=== PATIENT | female | born 1985 | race Caucasian/White ===

== ENCOUNTER 2021-05-30 22:44 | Emergency (ER) | payer OTHER ==
--- OUTSIDE RECORDS SUMMARY | 2021-05-30 22:47 | XMS REPORT | Continuity of Care Document ---
:1985 Author Organization [facility] t Address [address] [place] [address] Care Team Providers Name Role Phone Juan Maldonado MD Attending Clinician Josiah FOUNTAIN Attending Clinician Pob, Lab Main Attending Clinician Unavailable Doctor Unassigned, Name Attending Clinician Unavailable Problems This patient has no known problems. Allergies, Adverse Reactions, Alerts This patient has no known allergies or adverse reactions. Medications This patient has no known medications. Procedures This patient has no known procedures. Encounters Start End Encounter Admission Attending Care Care Encounter Source Date/Time Date/Time Type Type Clinicians Facility Department ID 2021-05-10 2021-05-10 Routine Anyi Maldonado [facility] [id number] 15:33:03 16:58:41 Juan Stock [id number] Visit Kassy [id number] [place] [id number] [address] 2021-05-09 2021-05-09 Case ISRAEL Rahman [id number] 00:00:00 00:00:00 Management Opal Stock [id number] [place] [id number] Professio [id number] [address] 2021-05-09 2021-05-09 Telephone Anyi Maldonado [facility] [id number] 00:00:00 00:00:00 Juan Stock [id number] [place] [id number] [facility] [id number] [facility] [address] [facility] 2021-05-05 2021-05-05 Hospital Anyi Maldonado [facility] [id number] 15:00:00 23:59:00 Encounter Cam Dayami [id number] [place] [id number] [place] [id number] 2021-05-05 2021-05-05 Cds Sales Advisor Noah Molina [facility] [id number] 15:14:32 15:29:32 Visit Lab Main Day[place] [id number] [place] [id number] [facility] [phone] [facility] 353 [facility] 2021-05-01 2021-05-01 Orders Doctor AMMY [id number] 00:00:00 00:00:00 Only Unassigned, LIVE [id number] [place] [facility] [id number] Results This patient has no known results.
[2021-05-30 23:52] LABS: Absolute Lymphocytes (CBC) 1.7 K/uL (0.7-4.9); Basophils % 0.3 % (0-1.3); Hematocrit 32.9 % (36.0-45.0); Lymphocytes % 23.3 % (15.3-44.8); MPV 7.9 fL (7.6-11.3); RBC Red Blood Cell Count 4.47 M/uL (3.86-4.86)
[2021-05-31 00:32] LABS: BUN Blood Urea Nitrogen 9 mg/dL (7-18); Bicarbonate 25 mmol/L (21-32); Glucose Level 215 mg/dL (74-106); HCG, Quantitative 18669 mIU/mL (1-3); Potassium 3.7 mmol/L (3.5-5.1); Sodium Level 136 mmol/L (136-145)
--- NOTE | 2021-05-31 00:39 | EDPHYS ---
Physician Documentation [facility] Name: Vicki Vizcaino Age: 36 yrs Sex: Female : 1985 Arrival Date: 05/30/2021 Time: 22:48 Bed 3 Private MD: ED Physician Francisco J Douglass HPI: 05/30 23:00 This 36 yrs old Female presents to ER via Wheelchair with complaints of 17 mh7 Weeks and Water Broke. 23:00 The patient presents to the emergency department with rupture of membranes, that mh7 occurred just prior to arrival, today. The estimated gestational age is 17 weeks. course: care: private OB physician, the patient's last check was April 2021, Leakage of Fluid: yes, a small amount, clear fluid, Ultrasound: the patient had an ultrasound, on April 2021, which was normal, Risk/complications: type I diabetes. Previous pregnancies: in previous pregnancies patient has had. 23:00 Associated signs and symptoms: Pertinent positives: Lower back pain, Pertinent mh7 negatives: abdominal pain, chest pain, diarrhea, dysuria, fever, frequency, nausea, seizure, shortness of breath, vaginal bleeding, vaginal discharge, vomiting. 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 - Social history:: Smoking status: Patient denies any tobacco usage or history of. ROS: 23:00 Constitutional: Negative for fever, chills, and weight loss, Eyes: Negative for injury, mh7 pain, redness, and discharge, ENT: Negative for injury, pain, and discharge, Neck: Negative for injury, pain, and swelling, Cardiovascular: Negative for chest pain, palpitations, and edema, Respiratory: Negative for shortness of breath, cough, wheezing, and pleuritic chest pain, Abdomen/GI: Negative for abdominal pain, nausea, vomiting, diarrhea, and constipation, Back: Negative for injury and pain, MS/Extremity: Negative for injury and deformity, Skin: Negative for injury, rash, and discoloration, Neuro: Negative for headache, weakness, numbness, tingling, and seizure, Psych: Negative for depression, anxiety, suicide ideation, homicidal ideation, and hallucinations, Allergy/Immunology: Negative for hives, rash, and allergies, Endocrine: Negative for neck swelling, polydipsia, polyuria, polyphagia, and marked weight changes. Exam: 23:00 Constitutional: This is a well developed, well nourished patient who is awake, alert, mh7 and in no acute distress. Head/Face: Normocephalic, atraumatic. Eyes: Pupils equal round and reactive to light, extra-ocular motions intact. Lids and lashes normal. Conjunctiva and sclera are non-icteric and not injected. Cornea within normal limits. Periorbital areas with no swelling, redness, or edema. Neck: Trachea midline, no thyromegaly or masses palpated, and no cervical lymphadenopathy. Supple, full range of motion without nuchal rigidity, or vertebral point tenderness. No Meningismus. Chest/axilla: Normal chest wall appearance and motion. Nontender with no deformity. No lesions are appreciated. Cardiovascular: Regular rate and rhythm with a normal S1 and S2. No gallops, murmurs, or rubs. Normal PMI, no JVD. No pulse deficits. Respiratory: Lungs have equal breath sounds bilaterally, clear to auscultation and percussion. No rales, rhonchi or wheezes noted. No increased work of breathing, no retractions or nasal flaring. Abdomen/GI: Soft, non-tender, with normal bowel sounds. No distension or tympany. No guarding or rebound. No evidence of tenderness throughout. Back: No spinal tenderness. No costovertebral tenderness. Full range of motion. Skin: Warm, dry with normal turgor. Normal color with no rashes, no lesions, and no evidence of cellulitis. MS/ Extremity: Pulses equal, no cyanosis. Neurovascular intact. Full, normal range of motion. Neuro: Awake and alert, GCS 15, oriented to person, place, time, and situation. Cranial nerves II-XII grossly intact. Motor strength 5/5 in all extremities. Sensory grossly intact. Cerebellar exam normal. Normal gait. Psych: Awake, alert, with orientation to person, place and time. Behavior, mood, and affect are within normal limits. 23:00 : Pelvic Exam: The exam is refused by the patient/guardian. The risks and [facility] consequences are understood by the patient, Gravid exam: Fundal height: consistent with gestational age, Bladder: is normal. Vital Signs: 22:59 BP 150 / 81; Pulse 87; Resp 20; Temp 98.5(O); Pulse Ox 100% on R/A; Weight 107.5 kg; em Height 5 ft. 2 in. (157.48 cm); Pain 7/10; 23:31 BP 140 / 71; Pulse 91; Resp 16; Pulse Ox 100% on R/A; ea 22:59 Body Mass Index 43.35 (107.50 kg, 157.48 cm) em MDM: 23:00 Data reviewed: vital signs, nurses notes. [facility] 05/31 04:18 Differential diagnosis: STD, threatened Ab, inevitable Ab, complete Ab, retained Ab, mh7 septic Ab, missed Ab, Premature Rupture of Membranes. 04:21 ED course: Informed by nursing staff the patient left AGAINST MEDICAL ADVICE. She would [facility] not wait to speak with physician.. 04:21 Data reviewed: lab test result(s). [facility] 04:22 Patient medically screened. [facility] 05/30 23:16 Order name: Abo/rh Typing; Complete Time: 00:33 7 05/30 23:16 Order name: Basic Metabolic Panel; Complete Time: 00:33 7 05/30 23:16 Order name: CBC with Diff; Complete Time: 00:05 7 05/30 23:16 Order name: Quantitative Hcg; Complete Time: 00:33 7 05/30 23:16 Order name: IV Saline Lock; Complete Time: 23:43 7 05/30 23:16 Order name: Labs collected and sent; Complete Time: 23:43 7 05/30 23:16 Order name: NPO; Complete Time: 23:43 7 Administered Medications: No medications were administered Disposition Summary: 05/31/21 00:38 Left Against Medical Advice Location: Home ea Condition: Stable ea Discharge Instructions: - Discharge Summary Sheet [facility] - Premature Rupture and Premature Rupture of Membranes [facility] Signatures: Dispatcher [employer] Akhil Murphy RN RN em Antunez, Elena, RN RN ea Holmes, Maurice, MD MD 7
--- NOTE | 2021-05-31 00:39 | ER ---
Nurse's Notes [facility] Name: Vicki Vizcaino Age: 36 yrs Sex: Female : 1985 Arrival Date: 05/30/2021 Time: 22:48 Bed 3 Private MD: Diagnosis: Presentation: 05/30 22:59 Chief complaint: Patient states: was going to get into the shower and felt water break, em reports being 17 weeks , denies blood or abdominal cramping, has had lower back pain that started this afternoon. Coronavirus screen: Client denies travel out of the [place] in the last 14 days. Ebola Screen: Patient negative for fever greater than or equal to 101.5 degrees Fahrenheit, and additional compatible Ebola Virus Disease symptoms Patient denies exposure to infectious person. Patient denies travel to an Ebola-affected area in the 21 days before illness onset. No symptoms or risks identified at this time. Initial Sepsis Screen: Does the patient meet any 2 criteria? No. Patient's initial sepsis screen is negative. Does the patient have a suspected source of infection? No. Patient's initial sepsis screen is negative. Risk Assessment: Do you want to hurt yourself or someone else? Patient reports no desire to harm self or others. Onset of symptoms was May 30, 2021. 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 - Social history:: Smoking status: Patient denies any tobacco usage or history of. Screenin:29 Abuse screen: Denies threats or abuse. Nutritional screening: No deficits noted. ea Tuberculosis screening: No symptoms or risk factors identified. Fall Risk None identified. Assessment: 23:29 General: Appears in no apparent distress. Behavior is calm, cooperative, appropriate ea for age. Pain: Complains of pain in back. Neuro: Level of Consciousness is awake, alert, obeys commands, Oriented to person, place, time. Cardiovascular: Patient's skin is warm and dry. Respiratory: Airway is patent Respiratory effort is even, unlabored, Respiratory pattern is regular, symmetrical. Derm: Skin is pink, warm \T\ dry. 05/31 00:37 Reassessment: Patient and/or family updated on plan of care and expected duration. Pain ea level reassessed. Patient is alert, oriented x 3, equal unlabored respirations, skin warm/dry/pink. Reports she is going [facility] where her OB is at. Vital Signs: 05/30 22:59 BP 150 / 81; Pulse 87; Resp 20; Temp 98.5(O); Pulse Ox 100% on R/A; Weight 107.5 kg; em Height 5 ft. 2 in. (157.48 cm); Pain 7/10; 23:31 BP 140 / 71; Pulse 91; Resp 16; Pulse Ox 100% on R/A; ea 22:59 Body Mass Index 43.35 (107.50 kg, 157.48 cm) em ED Course: 22:48 Patient arrived in ED. bp1 23:02 Triage completed. em 23:02 Arm band placed on. em 23:07 Francisco J Douglass MD is Attending Physician. [facility] 23:29 Lisette Agarwal RN is Primary Nurse. ea 23:29 Patient has correct armband on for positive identification. Bed in low position. Call ea light in reach. Side rails up X2. 23:30 No provider procedures requiring assistance completed. Inserted saline lock: 20 gauge ea in right antecubital area, using aseptic technique. 05/31 00:39 Primary Nurse role handed off by Lisette Agarwal RN ea Administered Medications: No medications were administered Outcome: 00:38 AMA AMA form signed ea 00:38 Condition: stable 00:38 Patient left the ED. ea 00:40 AMA ea 00:40 Patient left the ED. ea Signatures: Akhil Cordova RN MARINE Lisette Agarwal RN RN Pricila Lunsford bp1 Francisco J Douglass MD MD 7
[2021-05-31 00:44] VITALS: TEMP 98.5; O2SAT 100
[2021-05-31 00:46] VITALS: BP 140/71
== END 2021-05-31 00:40 | disposition left against medical advice (07) ==
LOC: ER 22:44
DX: O42.912 Preterm premature rupture of membranes, unspecified as to length of time between rupture and onset of labor, second trimester (principal); Z3A.17 17 weeks gestation of pregnancy
CPT/HCPCS: 36415; 80048; 84702; 85025; 86900; 86901; 99282

== ENCOUNTER 2023-03-29 06:49 | Emergency (ER) | payer OTHER ==
--- OUTSIDE RECORDS SUMMARY | 2023-03-29 06:54 | XMS REPORT | Continuity of Care Document ---
:1985 Author Organization [facility] t Address [address] [facility] [address] [place] [address] Care Team Providers Name Role Phone Pcp, Patient Does Not Have A Primary Care Physician +[id number] Doctor Unassigned, [place] Attending Clinician Unavailable CARITO MARQUEZ Attending Clinician Unavailable Carito Marquez MD Attending Clinician Josefina Edward MD Attending Clinician Opal Rahman PA-C Attending Clinician Pob, [facility] Lab Main Attending Clinician Unavailable JOSEFINA EDWARD Admitting Clinician Unavailable Josefina Edward MD Admitting Clinician Payers Payer Name Policy Type Policy Number Effective Date Expiration Date [facility] [id number] 2021 CHOICE MEDICAID 00:00:00 Problems Condition Condition Condition Status Onset Resolution Last Treating Co mments Source Name Details Category Date Date Treatment Clinician Date Encounter Encounter Disease Active Uni vers for tubal for tubal 8-20 ity of ligation ligation 00:00: [place] counseling counseling 00 Me dical Branch IUFD at IUFD at Disease Active Univers less than less than 8-15 ity of 20 weeks 20 weeks 00:00: [place] of of 00 Medical gestation gestation Bran ch Disease Active Univers premature premature 8-04 ity of rupture of rupture [place] 00:[place] membranes membranes 00 Medi isabelle (PPROM) (PPROM) Branch with with unknown unknown onset of onset of labor labor 16 weeks 16 weeks Disease Active Unive rs gestation gestation 8-04 ity of of of 00:00: [place] 00 [facility] Branch 17 weeks 17 weeks Disease Active Unive rs gestation gestation 8-04 ity of of of 00:00: [place] 00 [facility] Branch 18 weeks 18 weeks Disease Active Unive rs gestation gestation 8-04 ity of of of 00:00: [place] 00 [facility] Branch Disease Active Univers premature premature 8-04 ity of rupture of rupture of 00:00[place] membranes membranes 00 [facility] (PPROM) (PPROM) [place] with onset with onset of labor of labor after 24 after 24 hours of hours of rupture in rupture in second second trimester, trimester, antepartum antepartum Elevated Elevated Disease Active Unive rs BP without BP without 7-14 it [place] of diagnosis diagnosis 00:00[place] of of 00 Medical hypertensi hypertensi Br anch on on Maternal Maternal Disease Active Unive rs pregestati pregestati 04-28 it y of onal onal 00:00: [place] diabetes diabetes 00 Medica l classes B classes B Bran ch through R, through R, antepartum antepartum Obesity, Obesity, Disease Active Unive rs Class III, Class III, 7 it y of BMI BMI 00:00: [place] 40-49.9 40-49.9 00 Medical (morbid (morbid Branch obesity) obesity) AMA AMA Disease Active Univers (advanced (advanced 04-28 ity of maternal maternal 00:00: [place] age) age) 00 Medical multigravi multigravi Br anch da 35+, da 35+, unspecifie unspecifie d d trimester trimester High-risk High-risk Disease Active Uni vers 702 ity of in second in second 00:00[place] trimester trimester 00 [facility] Branch Obesity, Obesity, Disease Active Unive rs Class III, Class III, 7 it y of BMI BMI 00:00: [place] 40-49.9 40-49.9 00 Medical (morbid (morbid Branch obesity) obesity) Allergies, Adverse Reactions, Alerts Allergy Allergy Status Severity Reaction(s) Onset Inactive Treating Comm ents Source Name Type Date Date Clinician NO KNOWN Drug Active Univers ALLERGIE Class ity of S [facility] Social History Social Habit Start Date Stop Date Quantity Comments Source ASSERTION 2021-02-16 University of 00:00:00 [facility] Exposure to Not sure University of SARS-CoV-2 [place] [facility] (event) Branch History SDOH University o f Alcohol Frequency [place] M edical Branch History [facility] o f Alcohol Std [place] [facility] Drinks Branch History [facility] o f Alcohol Binge [facility] al [place] Alcohol intake 2021-06-30 2021-06-30 Ex-drinker [facility] 00:00:00 00:00:00 (finding) [facility] Tobacco use and 2021-04-28 2021-04-28 Smokeless tobacco Un iversity of exposure 00:00:00 00:00:00 non-user [facility] Alcohol Comment 2021-04-28 2021-04-28 socially prior to Un iversity of 00:00:00 00:00:00 [facility] Sex [birth year] Universit y of 00:00:00 00:00:00 [facility] Smoking Status Start Date Stop Date Source Unknown if ever smoked [facility] y [facility] Never smoked tobacco [facility] Medications Ordered Filled Start Stop Current Ordering Indication Dosage Frequency Signature Comments Components Source Medication Medication Date Date Medication? Clinician (SIG) Name Name norethindro Yes [id number] 1{tbl} Take 1 Univers ne-e.estrad 9-03 tablet by ity of ioL-iron 00:00: mouth [place] (BLISOVI FE 00 daily. Medica l 1.03/26, Branch 28,) 1.5 mg-30 mcg (21)/75 mg (7) per tablet norethindro Yes [id number] 1{tbl} Take 1 Univers ne-e.estrad 9-03 tablet by ity of ioL-iron 00:00: mouth [place] (BLISOVI FE 00 daily. Medica l 1.5/30, Branch 28,) 1.5 mg-30 mcg (21)/75 mg (7) per tablet norethindro Yes [id number] 1{tbl} Take 1 Univers ne-e.estrad 9-03 tablet by ity of ioL-iron 00:00: mouth [place] (BLISOVI FE 00 daily. Medica l 1.5/30, Branch 28,) 1.5 mg-30 mcg (21)/75 mg (7) per tablet metFORMIN 2020-0 Yes 1000mg Take 1,000 Univers 1,000 mg 8-27 mg by ity of tablet 00:00: mouth (two) Medical times Branch daily with meals. metFORMIN 2020-0 Yes 1000mg Take 1,000 Univers 1,000 mg 8-27 mg by ity of tablet 00:00: mouth [place] (two) Medical times Branch daily with meals. metFORMIN 0 Yes 1000mg Take 1,000 Univers 1,000 mg 8-27 mg by ity of tablet 00:00: mouth [place] (two) Medical times [place] daily with meals. Nitrofurant 2020- No [id number] 100mg Take 1 Univers oin&Nit. 06-23 capsule by ity of Macrocryst 00:00: 04:59 mouth 2 [place] (MACROBID) 00 :00 (two) Medical 100 mg times Branch capsule daily for 7 days. Nitrofurant 2020- No [id number] 100mg Take 1 Univers oin&Nit. 06-23 capsule by ity of Macrocryst 00:00: 04:59 mouth 2 [place] (MACROBID) 00 :00 (two) Medical 100 mg times Branch capsule daily for 7 days. Nitrofurant 2020- No [id number] 100mg Take 1 Univers oin&Nit. 06-23 capsule by ity of Macrocryst 00:00: 04:59 mouth 2 [place] (MACROBID) 00 :00 (two) Medical 100 mg times Branch capsule daily for 7 days. Nitrofurant 2020- No [id number] 100mg Take 1 Univers oin&Nit. 06-23 capsule by ity of Macrocryst 00:00: 04:59 mouth 2 [place] (MACROBID) 00 :00 (two) Medical 100 mg times Branch capsule daily for 7 days. phenazopyri 2020- No [id number] 200mg Take 1 Univers dine 06-23 tablet by ity of (PYRIDIUM) 00:00: 04:59 mouth 3 [place] 200 mg 00 :00 (three) Medical tablet times Branch daily after meals for 2 days. phenazopyri 202- No [id number] 200mg Take 1 Univers dine 8-27 08-30 tablet by ity of (PYRIDIUM) 00:00: 04:59 mouth 3 [place] 200 mg 00 :00 (three) Medical tablet times Branch daily after meals for 2 days. norethindro 0 Yes [id number] 1{tbl} Take 1 Univers ne-e.estrad 8-20 tablet by ity of ioL-iron 00:00: mouth [place] (BLISOVI FE 00 daily. Medica l 1.5, Branch 28,) 1.5 mg-30 mcg (21)/75 mg (7) per tablet norethindro 0 Yes [id number] 1{tbl} Take 1 Univers ne-e.estrad 8-20 tablet by ity of ioL-iron 00:00: mouth [place] (BLISOVI FE 00 daily. Medica l 1.03/26, Branch 28,) 1.5 mg-30 mcg (21)/75 mg (7) per tablet norethindro 0 Yes [id number] 1{tbl} Take 1 Univers ne-e.estrad 8-20 tablet by ity of ioL-iron 00:00: mouth [place] (BLISOVI FE 00 daily. Medica l 1.30, Branch 28,) 1.5 mg-30 mcg (21)/75 mg (7) per tablet norethindro 2020-0 Yes [id number] 1{tbl} Take 1 Univers ne-e.estrad 8-20 tablet by ity of ioL-iron 00:00: mouth [place] (BLISOVI FE 00 daily. Medica l 1.30, Branch 28,) 1.5 mg-30 mcg (21)/75 mg (7) per tablet norethindro 0 Yes [id number] 1{tbl} Take 1 Univers ne-e.estrad 8-20 tablet by ity of ioL-iron 00:00: mouth [place] (BLISOVI FE 00 daily. Medica l 1.30, Branch 28,) 1.5 mg-30 mcg (21)/75 mg (7) per tablet norethindro 2020- No [id number] 1{tbl} Take 1 Univers ne-e.estrad 06-16 tablet by it y of ioL-iron 00:00: 00:00 mouth [place] (BLISOVI FE 00 :00 daily. Medica l 1.5/30, Branch 28,) 1.5 mg-30 mcg (21)/75 mg (7) per tablet norethindro 2020- No [id number] 1{tbl} Take 1 Univers ne-e.estrad 06-16 tablet by it y of ioL-iron 00:00: 00:00 mouth [place] (BLISOVI FE 00 :00 daily. Medica l 1.5/30, Branch 28,) 1.5 mg-30 mcg (21)/75 mg (7) per tablet Yes 1{tbl} 1 tablet, Un ama vitamin 8-16 Oral, ity of w/FA 14:00: DAILY, [place] (PRENATABS 00 First dose Med ical RX) tablet on Sat Branch 1 tablet 06/12/21 at 0900, Until Discontinu ed, Routine ibuprofen Yes [id number] 600mg Take 1 U nivers 600 mg 8-16 tablet by ity of tablet 00:00: mouth [place] 00 every 6 Medical (six) Branch hours as needed (Pain). Take with food or milk. ibuprofen 2020-0 Yes [id number] 600mg Take 1 U nivers 600 mg 8-16 tablet by ity of tablet 00:00: mouth [place] 00 every 6 Medical (six) Branch hours as needed (Pain). Take with food or milk. ibuprofen 2020-0 Yes [id number] 600mg Take 1 U nivers 600 mg 8-16 tablet by ity of tablet 00:00: mouth [place] 00 every 6 Medical (six) Branch hours as needed (Pain). Take with food or milk. ibuprofen 2020-0 Yes [id number] 600mg Take 1 U nivers 600 mg 8-16 tablet by ity of tablet 00:00: mouth [place] 00 every 6 Medical (six) Branch hours as needed (Pain). Take with food or milk. ibuprofen 2020-0 Yes [id number] 600mg Take 1 U nivers 600 mg 8-16 tablet by ity of tablet 00:00: mouth [place] 00 every 6 Medical (six) Branch hours as needed (Pain). Take with food or milk. ibuprofen Yes [id number] 600mg Take 1 U nivers 600 mg 8-16 tablet by ity of tablet 00:00: mouth [place] 00 every 6 Medical (six) Branch hours as needed (Pain). Take with food or milk. ibuprofen Yes [id number] 600mg Take 1 U nivers 600 mg 8-16 tablet by ity of tablet 00:00: mouth [place] 00 every 6 Medical (six) Branch hours as needed (Pain). Take with food or milk. ibuprofen Yes [id number] 600mg Take 1 U nivers 600 mg 8-16 tablet by ity of tablet 00:00: mouth [place] 00 every 6 Medical (six) Branch hours as needed (Pain). Take with food or milk. ibuprofen Yes [id number] 600mg Take 1 U nivers 600 mg 8-16 tablet by ity of tablet 00:00: mouth [place] 00 every 6 Medical (six) Branch hours as needed (Pain). Take with food or milk. LR 1000 mL Yes 125mL/h 125 mL/hr, Univers + oxytocin 8-15 IV ity of 20 units IV 16:15: Infusion, [place] Solution 00 CONTINUOUS Medic al , Starting [facility] 06/11/21 at 1115
X 1 liter only.
rho(D) Yes 300ug 300 mcg, Univer s immune 8-15 Intramuscu ity of globulin 15:11: lar, ONCE, [place] (RHOGAM) 12 For 1 Medical syringe 300 dose, Branch mcg Conditiona l, Routine ibuprofen Yes 600mg 600 mg, Univ ers (IBU) 8-15 Oral, ity of tablet 600 15:07: Q6HPRN, [place] mg 39 Starting [facility] 06/11/21 at 1007, Until Discontinu ed, Routine, Pain (scale 4-6) acetaminoph Yes 650mg 650 mg, Un ama en 8-15 Oral, ity of (TYLENOL) 15:07: Q6HPRN, [place] tablet 650 38 Starting Medic al mg [facility] 06/11/21 at 1007, Until Discontinu ed, Routine, Pain (scale 1-3) diphenhydrA 2020-0 Yes 25mg 25 mg, Univ ers MINE 8-15 Oral, ity of (BENADRYL) 15:07: Q6HPRN, [place] tablet 25 38 Starting Medica l mg [facility] 06/11/21 at 1007, Until Discontinu ed, Routine, Sleep, Itching diphenhydrA 2020-0 Yes 25mg 25 mg, IV U nivers MINE 8-15 Piggyback, ity of (BENADRYL) 15:07: Administer [place] 25 mg in 38 over 30 Medical NaCl 0.9% Minutes, Branch (NS) Q6HPRN, piggyback Starting 06/11/21 at 1007, Until Discontinu ed, Routine, Itching ondansetron 2020-0 Yes 4mg 4 mg, Slow Univers (ZOFRAN 8-15 IV Push, ity of (PF)) 15:07: Q8HPRN, [place] injection 4 38 Starting Medi isabelle mg [place] 06/11/21 at 1007, Until Discontinu ed, Routine, Nausea and Vomiting (N/V) simethicone 2020-0 Yes 160mg 160 mg, Un ama (GAS RELIEF 8-15 Oral, ity of (SIMETHICON 15:07: PC+HSPRN, [place] E)) 38 Starting Medical chewable [place] [facility] tablet 160 06/11/21 at mg 1007, Until Discontinu ed, Routine, Gas docusate 2020-0 Yes 240mg 240 mg, Unive rs calcium 8-15 Oral, ity of (SURFAK) 15:07: QDAILYPRN, [place] capsule 240 38 Starting Medi isabelle mg [place] 06/11/21 at 1007, Until Discontinu ed, Routine, Constipati on magnesium 2020-0 Yes 30mL 30 mL, Univer s hydroxide 8-15 Oral, ity of (MILK OF 15:07: QDAILYPRN, [place] MAGNESIA) 38 Starting Medica l 400 mg/5 mL [place] suspension 06/11/21 at 30 mL 1007, Until Discontinu ed, Routine, Constipati on benzocaine- 2020-0 Yes Topical, Un ama menthol 8-15 PRN, ity of (DERMOPLAST 15:07: Starting [place] ) 20-0.5 % 38 [facility] topical 06/11/21 at Branch spray 1007, Until Discontinu ed, Routine, Perineum discomfort ibuprofen 2020- No 600mg 600 mg, Uni vers (IBU) 06-11 Oral, ity of tablet 600 15:00: 17:59 Q6HPRN, [place] mg 00 :54 Starting Medical [facility] 06/11/21 at 1000, Until [place] 06/11/21 at 1259, Routine, Pain (scale 1-3), Pain (scale 4-6) FENTanyl PF 2020- No 50ug 50 mcg, Un ama (SUBLIMAZE 06-11 Slow IV ity o f (PF)) 13:15: 12:49 Push, [place] injection 00 :00 ONCE, 1 Medical 50 mcg dose, [facility] 06/11/21 at 0815, Routine FENTanyl PF 2020- No 50ug 50 mcg, Un ama (SUBLIMAZE 06-11 Slow IV ity o f (PF)) 13:00: 13:01 Push, [place] injection 00 :00 ONCE, 1 Medical 50 mcg dose, [facility] 06/11/21 at 0800, Routine LR 1000 mL Yes 2mU/min at 6-120 Univers + oxytocin 8-15 mL/hr, IV ity of 20 units IV 12:55: Infusion, [place] Solution 00 TITRATE, [facility] Starting [facility] 06/11/21 at 0755, Until Discontinu ed, BONY methylergon 2020- No .2mg 0.2 mg, Un ama ovine 06-11 Intramuscu ity of (METHERGINE 12:45: 12:44 lar, ONCE, [place] ) injection 00 :00 1 dose, Medic al 0.2 mg [facility] 06/11/21 at 0745, Routine ALPRAZolam 2020- No 1mg 1 mg, Unive rs (XANAX) 05-31 08-04 Oral, ity of tablet 1 mg 10:11: 10:27 ONCE, 1 [place] 00 :00 dose, [facility] 05/31/21 at Branch 0515, Routine FREESTYLE Yes CHECK Univers LANCETS 28 7-27 GLUCOSE ity of gauge Misc 00:00: LEVELS 4 [place] 00 TIMES A Medical DAY Branch FREESTYLE Yes CHECK Univers LANCETS 28 7-27 GLUCOSE ity of gauge Misc 00:00: LEVELS 4 [place] 00 TIMES A Medical DAY Branch FREESTYLE Yes CHECK Univers LANCETS 28 7-27 GLUCOSE ity of gauge Misc 00:00: LEVELS 4 [place] 00 TIMES A Medical DAY Branch FREESTYLE Yes CHECK Univers LANCETS 28 7-27 GLUCOSE ity of gauge Misc 00:00: LEVELS 4 [place] 00 TIMES A Medical DAY Branch FREESTYLE Yes CHECK Univers LANCETS 28 7-27 GLUCOSE ity of gauge Misc 00:00: LEVELS 4 [place] 00 TIMES A Medical DAY Branch ferrous Yes [id number] 325mg Take 1 Un ama sulfate 7-14 tablet by ity of (IRON, 00:00: mouth 2 [place] FERROUS 00 (two) Medical SULFATE,) times Branch 325 mg (65 daily. mg iron) tablet insulin NPH Yes Inject Univ ers (HUMULIN N 7-14 under the ity of NPH U-100 00:00: skin: 33 [place] INSULIN) 00 units with Medic al 100 unit/mL morning Branc h injection meal and 12 units with evening meal. insulin Yes Inject Univers regular 7-14 under the ity of human 100 00:00: skin: 17 [place] unit/mL 00 units with Medica l injection morning Branch meal and 12 units with evening meal. Insulin Yes Use as Univers Syringe-Nee 7-14 directed ity of dle U-100 00:00: [place] 0.5 mL 31 x 00 Medical 3/8" Syrg Branch ferrous Yes [id number] 325mg Take 1 Un ama sulfate 7-14 tablet by ity of (IRON, 00:00: mouth 2 [place] FERROUS 00 (two) Medical SULFATE,) times Branch 325 mg (65 daily. mg iron) tablet insulin NPH Yes Inject Univ ers (HUMULIN N 7-14 under the ity of NPH U-100 00:00: skin: 33 [place] INSULIN) 00 units with Medic al 100 unit/mL morning Branc h injection meal and 12 units with evening meal. insulin Yes Inject Univers regular 7-14 under the ity of human 100 00:00: skin: 17 [place] unit/mL 00 units with Medica l injection morning Branch meal and 12 units with evening meal. Insulin Yes Use as Univers Syringe-Nee 7-14 directed ity of dle U-100 00:00: [place] 0.5 mL 31 x 00 Medical 3/8" Syrg Branch ferrous Yes [id number] 325mg Take 1 Un ama sulfate 7-14 tablet by ity of (IRON, 00:00: mouth 2 [place] FERROUS 00 (two) Medical SULFATE,) times Branch 325 mg (65 daily. mg iron) tablet insulin NPH Yes Inject Univ ers (HUMULIN N 7-14 under the ity of NPH U-100 00:00: skin: 33 [place] INSULIN) 00 units with Medic al 100 unit/mL morning Branc h injection meal and 12 units with evening meal. insulin Yes Inject Univers regular 7-14 under the ity of human 100 00:00: skin: 17 [place] unit/mL 00 units with Medica l injection morning Branch meal and 12 units with evening meal. Insulin Yes Use as Univers Syringe-Nee 7-14 directed ity of dle U-100 00:00: [place] 0.5 mL 31 x 00 Medical 3/8" Syrg Branch ferrous Yes [id number] 325mg Take 1 Un ama sulfate 7-14 tablet by ity of (IRON, 00:00: mouth 2 [place] FERROUS 00 (two) Medical SULFATE,) times Branch 325 mg (65 daily. mg iron) tablet BD INSULIN Yes USE Unive rs SYRINGE 7-14 DIRECTED ity of ULTRA-FINE 00:00: (4 TIMES [place] 1 mL 31 00 DAILY) Medical gauge x Branch 5/16 Syrg insulin NPH Yes Inject Univ ers (HUMULIN N 7-14 under the ity of NPH U-100 00:00: skin: 33 [place] INSULIN) 00 units with Medic al 100 unit/mL morning Branc h injection meal and 12 units with evening meal. insulin Yes Inject Univers regular 7-14 under the ity of human 100 00:00: skin: 17 [place] unit/mL 00 units with Medica l injection morning Branch meal and 12 units with evening meal. Insulin Yes Use as Univers Syringe-Nee 7-14 directed ity of dle U-100 00:00: [place] 0.5 mL 31 x 00 Medical 3/8" Syrg Branch ferrous Yes [id number] 325mg Take 1 Un ama sulfate 7-14 tablet by ity of (IRON, 00:00: mouth 2 [place] FERROUS 00 (two) Medical SULFATE,) times Branch 325 mg (65 daily. mg iron) tablet BD INSULIN Yes USE Unive rs SYRINGE 7-14 DIRECTED ity of ULTRA-FINE 00:00: (4 TIMES [place] 1 mL 31 DAILY) Medical gauge x Branch 5/16 Syrg insulin NPH Yes Inject Univ ers (HUMULIN N 7-14 under the ity of NPH U-100 00:00: skin: [place] INSULIN) 00 units with Medic al 100 unit/mL morning Branc h injection meal and 12 units with evening meal. insulin Yes Inject Univers regular 7-14 under the ity of human 100 00:00: skin: 17 [place] unit/mL 00 units with Medica l injection morning Branch meal and 12 units with evening meal. Insulin Yes Use as Univers Syringe-Nee 7-14 directed ity of dle U-100 00:00: [place] 0.5 mL 31 x 00 Medical 3/8" Syrg Branch ferrous Yes [id number] 325mg Take 1 Un ama sulfate 7-14 tablet by ity of (IRON, 00:00: mouth 2 [place] FERROUS 00 (two) Medical SULFATE,) times Branch 325 mg (65 daily. mg iron) tablet BD INSULIN Yes USE Unive rs SYRINGE 7-14 DIRECTED ity of ULTRA-FINE 00:00: (4 TIMES [place] 1 mL 31 DAILY) Medical gauge x Branch 5/16 Syrg insulin NPH Yes Inject Univ ers (HUMULIN N 7-14 under the ity of NPH U-100 00:00: skin: [place] INSULIN) 00 units with Medic al 100 unit/mL morning Branc h injection meal and 12 units with evening meal. insulin Yes Inject Univers regular 7-14 under the ity of human 100 00:00: skin: 17 [place] unit/mL 00 units with Medica l injection morning Branch meal and 12 units with evening meal. Insulin Yes Use as Univers Syringe-Nee 7-14 directed ity of dle U-100 00:00: [place] 0.5 mL 31 x 00 Medical 3/8" Syrg Branch ferrous Yes [id number] 325mg Take 1 Un ama sulfate 7-14 tablet by ity of (IRON, 00:00: mouth 2 [place] FERROUS 00 (two) Medical SULFATE,) times Branch 325 mg (65 daily. mg iron) tablet BD INSULIN Yes USE Unive rs SYRINGE 7-14 DIRECTED ity of ULTRA-FINE 00:00: (4 TIMES [place] 1 mL DAILY) Medical gauge x Branch 5/16 Syrg insulin NPH Yes Inject Univ ers (HUMULIN N 7-14 under the ity of NPH U-100 00:00: skin: 33 [place] INSULIN) 00 units with Medic al 100 unit/mL morning Branc h injection meal and 12 units with evening meal. insulin Yes Inject Univers regular 7-14 under the ity of human 100 00:00: skin: 17 [place] unit/mL 00 units with Medica l injection morning Branch meal and 12 units with evening meal. Insulin Yes Use as Univers Syringe-Nee 7-14 directed ity of dle U-100 00:00: [place] 0.5 mL 31 x 00 Medical 3/8" Syrg Branch ferrous Yes [id number] 325mg Take 1 Un ama sulfate 7-14 tablet by ity of (IRON, 00:00: mouth 2 [place] FERROUS 00 (two) Medical SULFATE,) times Branch 325 mg (65 daily. mg iron) tablet BD INSULIN Yes USE Unive rs SYRINGE 7-14 DIRECTED ity of ULTRA-FINE 00:00: (4 TIMES [place] 1 mL DAILY) Medical gauge x Branch 5/16 Syrg ferrous Yes [id number] 325mg Take 1 Un ama sulfate 7-14 tablet by ity of (IRON, 00:00: mouth 2 [place] FERROUS 00 (two) Medical SULFATE,) times Branch 325 mg (65 daily. mg iron) tablet ferrous Yes [id number] 325mg Take 1 Un ama sulfate 7-14 tablet by ity of (IRON, 00:00: mouth 2 [place] FERROUS 00 (two) Medical SULFATE,) times Branch 325 mg (65 daily. mg iron) tablet ferrous Yes [id number] 325mg Take 1 Un ama sulfate 7-14 tablet by ity of (IRON, 00:00: mouth 2 [place] FERROUS 00 (two) Medical SULFATE,) times Branch 325 mg (65 daily. mg iron) tablet ferrous Yes [id number] 325mg Take 1 Un ama sulfate 7-14 tablet by ity of (IRON, 00:00: mouth 2 [place] FERROUS 00 (two) Medical SULFATE,) times Branch 325 mg (65 daily. mg iron) tablet ferrous Yes [id number] 325mg Take 1 Un ama sulfate 7-14 tablet by ity of (IRON, 00:00: mouth 2 [place] FERROUS 00 (two) Medical SULFATE,) times Branch 325 mg (65 daily. mg iron) tablet ferrous Yes [id number] 325mg Take 1 Un ama sulfate 7-14 tablet by ity of (IRON, 00:00: mouth 2 [place] FERROUS 00 (two) Medical SULFATE,) times Branch 325 mg (65 daily. mg iron) tablet ferrous Yes [id number] 325mg Take 1 Un ama sulfate 7-14 tablet by ity of (IRON, 00:00: mouth 2 [place] FERROUS 00 (two) Medical SULFATE,) times Branch 325 mg (65 daily. mg iron) tablet ferrous Yes [id number] 325mg Take 1 Un ama sulfate 7-14 tablet by ity of (IRON, 00:00: mouth 2 [place] FERROUS 00 (two) Medical SULFATE,) times Branch 325 mg (65 daily. mg iron) tablet insulin NPH 2020- No Inject Uni vers (HUMULIN N 05-10 under the ity of NPH U-100 00:00: 00:00 skin: 33 [place] INSULIN) 00 :00 units with Medic al 100 unit/mL morning Branc h injection meal and 12 units with evening meal. insulin 2020- No Inject Univers regular 05-10 under the ity of human 100 00:00: 00:00 skin: 17 [place] unit/mL 00 :00 units with Medica l injection morning Branch meal and 12 units with evening meal. Insulin 2020- No Use as Univers Syringe-Nee 05-10 directed ity of dle U-100 00:00: 00:00 [place] 0.5 mL 31 x 00 :00 Medical 3/8" Syrg Branch BD INSULIN 2020- No USE Univ ers SYRINGE 05-10 DIRECTED ity of ULTRA-FINE 00:00: 00:00 (4 TIMES [place] 1 mL 31 00 :00 DAILY) Medical gauge x Branch 16 Syrg metroNIDAZO Yes [id number] 500mg Take 1 Univers LE 500 mg 7-13 tablet by ity o f tablet 00:00: mouth [place] 00 every 12 Medical (twelve) Branch hours. metroNIDAZO Yes [id number] 500mg Take 1 Univers LE 500 mg 7-13 tablet by ity o f tablet 00:00: mouth [place] 00 every 12 Medical (twelve) Branch hours. metroNIDAZO Yes [id number] 500mg Take 1 Univers LE 500 mg 7-13 tablet by ity o f tablet 00:00: mouth [place] 00 every 12 Medical (twelve) Branch hours. Yes [id number] Take by Un ama vit 7-02 mouth. ity of calc,iron,f 20:04: [place] [id number] Medical ( Branch VITAMIN ORAL) Yes [id number] Take by Un ama vit 7-02 mouth. ity of calc,iron,f 20:04: [place] [id number] Medical ( Branch VITAMIN ORAL) Yes [id number] Take by Un ama vit 7-02 mouth. ity of calc,iron,f 20:04: [place] [id number] Medical ( Branch VITAMIN ORAL) Yes [id number] Take by Un ama vit 7-02 mouth. ity of calc,iron,f 20:04: [place] [id number] Medical ( Branch VITAMIN ORAL) Yes [id number] Take by Un ama vit 7-02 mouth. ity of calc,iron,f 20:04: [place] [id number] Medical ( Branch VITAMIN ORAL) Yes [id number] Take by Un ama vit 7-02 mouth. ity of calc,iron,f 20:04: [facility] 04 Medical ( Branch VITAMIN ORAL) Yes [id number] Take by Un ama vit 04-28 mouth. ity of calc,iron,f 20:04[facility]AL) Yes [id number] Take by Un ama vit 04-28 mouth. ity of calc,iron,f 20:04: [place] [id number] Medical ( Branch VITAMIN ORAL) Yes [id number] Take by Un ama vit 04-28 mouth. ity of calc,iron,f 20:04: [place] [id number] Medical ( Branch VITAMIN ORAL) Blood-Gluco Yes Use as Univers se Meter 04-28 directed ity of (FREESTYLE 00:00: [place] LITE METER) 00 Medical Kit Branch blood sugar Yes Pt to Univers diagnostic 04-28 check [place]y of (FREEST[place] 00:[place] levels 4 x Medical STRIPS) per day Branch strip Lancets Yes Pt will Un ama Misc 04-28 check ity of 00:00: glucose [place] 00 levels 4 x Medical per day Branch PNV 0 Yes Take 1 Univers 102-iron-fo 04-28 TAB-CAP/M2 it y of late-dha 00:00: by mouth [place] (VITAFOL FE 00 daily. Medica l PLUS) 90 mg Branch iron- 1 mg-200 mg Cap Blood-Gluco Yes Use as Univers se Meter 04-28 directed ity of (FREESTYLE 00:00: [place] LITE METER) 00 Medical Kit Branch blood sugar Yes Pt to Univers diagnostic 04-28 check [place]y of (FREESTYLE 00:00[place] L[place] 00 levels 4 x Medical STRIPS) per day Branch strip Lancets Yes Pt will Un ama Misc 04-28 check ity of 00:00: glucose [place] 00 levels 4 x Medical per day Branch PNV 0 Yes [id number] Take 1 Univers 102-iron-fo -02 TAB-CAP/M2 it y of late-dha 00:00: by mouth [place] (VITAFOL FE 00 daily. Medica l PLUS) 90 mg Branch iron- 1 mg-200 mg Cap Blood-Gluco Yes [id number] Use as Univers se Meter 04-28 directed ity of (FREESTYLE 00:00: [place] LITE METER) 00 Medical Kit Branch blood sugar Yes Pt to [facility] diagnostic 04-28 check ity of (FREESTYLE 00:00: [place] L[place] 00 levels 4 x Medical STRIPS) per day Branch strip Lancets Yes Pt will Un ama Misc 04-28 check ity of 00:00: glucose [place] 00 levels 4 x Medical per day Branch PNV Yes [id number] Take 1 Univers 102-iron-fo 04-28 TAB-CAP/M2 it y of late-dha 00:00: by mouth [place] (VITAFOL FE 00 daily. Medica l PLUS) 90 mg Branch iron- 1 mg-200 mg Cap Blood-Gluco Yes [id number] Use as Univers se Meter 04-28 directed ity of (FREESTYLE 00:00: [place] LITE METER) 00 Medical Kit Branch blood sugar Yes Pt to [facility] diagnostic 04-28 check ity of (FREESTYLE 00:00: [place] L[place] 00 levels 4 x Medical STRIPS) per day Branch strip Lancets Yes Pt will Un ama Mis 04-28 check ity of 00:00: glucose [place] 00 levels 4 x Medical per day Branch PNV Yes [id number] Take 1 Univers 102-iron-fo 04-28 TAB-CAP/M2 it y of late-dha 00:00: by mouth [place] (VITAFOL FE 00 daily. Medica l PLUS) 90 mg Branch iron- 1 mg-200 mg Cap Blood-Gluco Yes [id number] Use as Univers se Meter 04-28 directed ity of (FREESTYLE 00:00: [place] LITE METER) 00 Medical Kit Branch blood sugar Yes Pt to [facility] diagnostic 04-28 check ity of (FREESTYLE 00:00: [place] L[place] 00 levels 4 x Medical STRIPS) per day Branch strip Lancets Yes Pt will Un ama Misc 04-28 check ity of 00:00: glucose [place] 00 levels 4 x Medical per day Branch PNV 0 Yes [id number] Take 1 Univers 102-iron-fo 04-28 TAB-CAP/M2 it y of late-dha 00:00: by mouth [place] (VITAFOL FE 00 daily. Medica l PLUS) 90 mg Branch iron- 1 mg-200 mg Cap Blood-Gluco Yes [id number] Use as Univers se Meter 04-28 directed ity of (FREESTYLE 00:00: [place] LITE METER) 00 Medical Kit Branch blood sugar Yes Pt to Univers diagnostic 04-28 check ity of (FREESTYLE 00:00: [place] LITE 00 levels 4 x Medical STRIPS) per day Branch strip Lancets Yes Pt will Un ama [facility] 04-28 check ity of 00:00: glucose [place] 00 levels 4 x Medical per day Branch PNV 0 Yes [id number] Take 1 Univers 102-iron-fo 04-28 TAB-CAP/M2 it y of late-dha 00:00: by mouth [place] (VITAFOL FE 00 daily. Medica l PLUS) 90 mg Branch iron- 1 mg-200 mg Cap Blood-Gluco Yes [id number] Use as Univers se Meter 04-28 directed ity of (FREESTYLE 00:00: [place] LITE METER) 00 Medical Kit Branch blood sugar Yes Pt to Univers diagnostic 04-28 check ity of (FREESTYLE 00:00: [place] L[place] 00 levels 4 x Medical STRIPS) per day Branch strip Lancets Yes Pt will Un ama Mis 04-28 check ity of 00:00: glucose [place] 00 levels 4 x Medical per day Branch PNV 0 Yes [id number] Take 1 Univers 102-iron-fo 04-28 TAB-CAP/M2 it y of late-dha 00:00: by mouth [place] (VITAFOL FE 00 daily. Medica l PLUS) 90 mg Branch iron- 1 mg-200 mg Cap Blood-Gluco Yes [id number] Use as Univers se Meter 04-28 directed ity of (FREESTYLE 00:00: [place] LITE METER) 00 Medical Kit Branch blood sugar Yes [id number] Pt to [facility] diagnostic 04-28 check ity of (FREESTYLE 00:00: [place] L[place] 00 levels 4 x Medical STRIPS) per day Branch strip Lancets Yes Pt will Un ama Misc 04-28 check ity of 00:00: glucose [place] 00 levels 4 x Medical per day Branch PNV Yes [id number] Take 1 Univers 102-iron-fo 04-28 TAB-CAP/M2 it y of late-dha 00:00: by mouth [place] (VITAFOL FE 00 daily. Medica l PLUS) 90 mg Branch iron- 1 mg-200 mg Cap Blood-Gluco Yes [id number] Use as Univers se Meter 04-28 directed ity of (FREESTYLE 00:00: [place] LITE METER) 00 Medical Kit Branch blood sugar Yes [id number] Pt to [facility] diagnostic 04-28 check ity of (FREESTYLE 00:00: [place] LITE 00 levels 4 x Medical STRIPS) per day Branch strip Lancets Yes [id number] Pt will Un ama Mis 04-28 check ity of 00:00: glucose [place] 00 levels 4 x Medical per day Branch PNV 0 Yes [id number] Take 1 Univers 102-iron-fo 04-28 TAB-CAP/M2 it y of late-dha 00:00: by mouth [place] (VITAFOL FE 00 daily. Medica l PLUS) 90 mg Branch iron- 1 mg-200 mg Cap Blood-Gluco Yes [id number] Use as Univers se Meter 04-28 directed ity of (FREESTYLE 00:00: [place] LITE METER) 00 Medical Kit Branch blood sugar Yes [id number] Pt to [facility] diagnostic 04-28 check ity of (FREESTYLE 00:00: [place] LITE 00 levels 4 x Medical STRIPS) per day Branch strip Lancets Yes [id number] Pt will Un ama Misc 04-28 check ity of 00:00: glucose [place] 00 levels 4 x Medical per day Branch PNV 0 Yes [id number] Take 1 Univers 102-iron-fo 04-28 TAB-CAP/M2 it y of late-dha 00:00: by mouth [place] (VITAFOL FE 00 daily. Medica l PLUS) 90 mg Branch iron- 1 mg-200 mg Cap Blood-Gluco Yes [id number] Use as Univers se Meter 04-28 directed ity of (FREESTYLE 00:00: [place] LITE METER) 00 Medical Kit Branch blood sugar Yes Pt to Univers diagnostic 04-28 check ity of (FREESTYLE 00:00: [place] LITE 00 levels 4 x Medical STRIPS) per day Branch strip Lancets Yes Pt will Un ama Misc 04-28 check ity of 00:00: glucose [place] 00 levels 4 x Medical per day Branch PNV 0 Yes [id number] Take 1 Univers 102-iron-fo 04-28 TAB-CAP/M2 it y of 00:00: by mouth [place] (VITAFOL FE 00 daily. Medica l PLUS) 90 mg Branch iron- 1 mg-200 mg Cap Blood-Gluco Yes [id number] Use as Univers se Meter 04-28 directed ity of (FREESTYLE 00:00: [place] LITE METER) 00 Medical Kit Branch blood sugar Yes Pt to [facility] diagnostic 04-28 check ity of (FREESTYLE 00:00: [place] LITE 00 levels 4 x Medical STRIPS) per day Branch strip Lancets Yes Pt will Un ama Misc 04-28 check ity of 00:00: glucose [place] 00 levels 4 x Medical per day Branch PNV 0 Yes [id number] Take 1 Univers 102-iron-fo 04-28 TAB-CAP/M2 it y of 00:00: by mouth [place] (VITAFOL FE 00 daily. Medica l PLUS) 90 mg Branch iron- 1 mg-200 mg Cap Blood-Gluco Yes [id number] Use as Univers se Meter 04-28 directed ity of (FREESTYLE 00:00: [place] LITE METER) 00 Medical Kit Branch blood sugar Yes Pt to Univers diagnostic 04-28 check ity of (FREESTYLE 00:00: [place] LITE 00 levels 4 x Medical STRIPS) per day Branch strip Lancets 2021-0 Yes Pt will Un ama Misc 04-28 check ity of 00:00: glucose [place] 00 levels 4 x Medical per day Branch PNV 0 Yes [id number] Take 1 Univers 102-iron-fo 04-28 TAB-CAP/M2 it y of late-dha 00:00: by mouth [place] (VITAFOL FE 00 daily. Medica l PLUS) 90 mg Branch iron- 1 mg-200 mg Cap Blood-Gluco 0 Yes [id number] Use as Univers se Meter 04-28 directed ity of (FREESTYLE 00:00: [place] LITE METER) 00 Medical Kit Branch blood sugar Yes [id number] Pt to Univers diagnostic 04-28 check ity of (FREESTYLE 00:00: [place] L[place] 00 levels 4 x Medical STRIPS) per day Branch strip Lancets Yes [id number] Pt will Un ama Misc 04-28 check ity of 00:00: glucose [place] 00 levels 4 x Medical per day Branch PNV 0 Yes [id number] Take 1 Univers 102-iron-fo 04-28 TAB-CAP/M2 it y of late-dha 00:00: by mouth [place] (VITAFOL FE 00 daily. Medica l PLUS) 90 mg Branch iron- 1 mg-200 mg Cap Blood-Gluco 0 Yes [id number] Use as Univers se Meter 04-28 directed ity of (FREESTYLE 00:00: [place] LITE METER) 00 Medical Kit Branch blood sugar 0 Yes [id number] Pt to Univers diagnostic 04-28 check ity of (FREESTYLE 00:00: [place] LITE 00 levels 4 x Medical STRIPS) per day Branch strip Lancets 0 Yes [id number] Pt will Un ama Misc 04-28 check ity of 00:00: glucose [place] 00 levels 4 x Medical per day Branch PNV 0 Yes [id number] Take 1 Univers 102-iron-fo 04-28 TAB-CAP/M2 it y of late-dha 00:00: by mouth [place] (VITAFOL FE 00 daily. Medica l PLUS) 90 mg Branch iron- 1 mg-200 mg Cap Blood-Gluco 2020-0 2020- No [id number] Use as Univers se Meter 04-28 directed ity of (FREESTYLE 00:00: 00:00 [place] LITE METER) 00 :00 Medical Kit Branch blood sugar 2020- No [id number] Pt to Univers diagnostic 04-28 check ity of (FREESTYLE 00:00: 00:00 glucose [place] LITE 00 :00 levels 4 x Medical STRIPS) per day Branch strip Lancets 2020- No [id number] Pt will U nivers Misc 04-28 check ity of 00:00: 00:00 glucose [place] 00 :00 levels 4 x Medical per day Branch PNV 2020- No [id number] Take 1 Univer s 102-iron-fo 04-28 TAB-CAP/M2 i ty of late-dha 00:00: 00:[place] (VITAFOL FE 00 :00 daily. Medica l PLUS) 90 mg Branch iron- 1 mg-200 mg Cap metFORMIN Yes 1000mg Take 1,000 Univers 1,000 mg 6-23 mg by ity of tablet 00:00: mouth [address] [place] [address] (two) Medical times Branch daily with meals. metFORMIN 2020-0 Yes 1000mg Take 1,000 Univers 1,000 mg 6-23 mg by ity of tablet 00:00: mouth [address] [place] [address] (two) Medical times Branch daily with meals. metFORMIN 2020-0 Yes 1000mg Take 1,000 Univers 1,000 mg 6-23 mg by ity of tablet 00:00: mouth [address] [place] [address] (two) Medical times Branch daily with meals. metFORMIN 2020-0 Yes 1000mg Take 1,000 Univers 1,000 mg 6-23 mg by ity of tablet 00:00: mouth [address] [place] [address] (two) Medical times Branch daily with meals. metFORMIN 2020-0 Yes 1000mg Take 1,000 Univers 1,000 mg 6-23 mg by ity of tablet 00:00: mouth [address] [place] [address] (two) Medical times Branch daily with meals. metFORMIN 2020-0 Yes 1000mg Take 1,000 Univers 1,000 mg 6-23 mg by ity of tablet 00:00: mouth [address] [place] [address] (two) Medical times Branch daily with meals. metFORMIN 2020-0 Yes 1000mg Take 1,000 Univers 1,000 mg 6-23 mg by ity of tablet 00:00: mouth 2 (two) Medical times Branch daily with meals. metFORMIN 2020-0 Yes 1000mg Take 1,000 Univers 1,000 mg 6-23 mg by ity of tablet 00:00: mouth 2 (two) Medical times Branch daily with meals. metFORMIN 2020-0 Yes 1000mg Take 1,000 Univers 1,000 mg 6-23 mg by ity of tablet 00:00: mouth 2 (two) Medical times [place] daily with meals. Vital Signs Vital Name Observation Time Observation Value Comments Source Systolic blood 2021-06-30 19:48:00 125 mm[Hg] [facility] Diastolic blood 2021-06-30 19:48:00 80 mm[Hg] [facility] Heart rate 2021-06-30 19:48:00 80 /min Universi ty [facility] Body temperature 2021-06-30 19:48:00 37 Patricia [facility] 2021-06-30 19:48:00 20 /min [facility] ersity [facility] Body height 2021-06-30 19:48:00 157.5 cm Universi ty [facility] Body weight 2021-06-30 19:48:00 106.624 kg Universi ty [facility] BMI 2021-06-30 19:48:00 42.99 kg/m2 Universi ty [facility] Systolic blood 2021-06-23 15:41:00 125 mm[Hg] [facility] Diastolic blood 2021-06-23 15:41:00 81 mm[Hg] [facility] Heart rate 2021-06-23 15:41:00 65 /min Universi ty [facility] Body temperature 2021-06-23 15:41:00 36.78 Patricia [facility] 2021-06-23 15:41:00 20 /min [facility] Body height 2021-06-23 15:41:00 157.5 cm Universi ty [facility] Body weight 2021-06-23 15:41:00 106.255 kg Universi ty [facility] BMI 2021-06-23 15:41:00 42.84 kg/m2 Universi ty [facility] [place] [facility] Systolic blood 2021-06-23 15:41:00 125 mm[Hg] Univer sity of pressure [place] [facility] Diastolic blood 2021-06-23 15:41:00 81 mm[Hg] Unive rsity of pressure [place] [facility] Heart rate 2021-06-23 15:41:00 65 /min Universi ty [facility] [place] [facility] Body temperature 2021-06-23 15:41:00 36.78 Patricia Univ ersity [facility] [place] [facility] Respiratory rate 2021-06-23 15:41:00 20 /min Univ ersity [facility] [place] [facility] Body height 2021-06-23 15:41:00 157.5 cm Universi ty [facility] [place] [facility] Body weight 2021-06-23 15:41:00 106.255 kg [facility]i ty [facility] [place] [facility] BMI 2021-06-23 15:41:00 42.84 kg/m2 [facility] [place] [facility] Systolic blood 2021-06-19 20:25:00 135 mm[Hg] Univer sity of pressure [place] [facility] Diastolic blood 2021-06-19 20:25:00 89 mm[Hg] Unive rsity of pressure [place] [facility] Heart rate 2021-06-19 20:25:00 89 /min Universi ty [facility] [place] [facility] Body temperature 2021-06-19 20:25:00 37.06 Patricia Univ ersity [facility] [place] [facility] Respiratory rate 2021-06-19 20:25:00 18 /min Univ ersity [facility] [place] [facility] Body height 2021-06-19 20:25:00 157.5 cm Universi ty [facility] [place] [facility] Body weight 2021-06-19 20:25:00 107.956 kg Universi ty [facility] [place] [facility] BMI 2021-06-19 20:25:00 43.53 kg/m2 Universi ty [facility] [place] [facility] Systolic blood 2021-06-16 20:12:00 154 mm[Hg] Univer sity of pressure [place] [facility] Diastolic blood 2021-06-16 20:12:00 81 mm[Hg] Unive rsity of pressure [place] [facility] Heart rate 2021-06-16 20:12:00 96 /min Universi ty [facility] [place] [facility] Respiratory rate 2021-06-16 20:12:00 18 /min Univ ersity [facility] [place] [facility] Body height 2021-06-16 20:12:00 157.5 cm Universi ty [facility] [place] [facility] Body weight 2021-06-16 20:12:00 108.013 kg [facility]i [facility] [place] [facility] BMI 2021-06-16 20:12:00 43.55 kg/m2 [facility]i [facility] [place] [facility] Oxygen saturation in 2021-06-16 20:12:00 98 /min University of Arterial blood by [facility] Pulse oximetry Branch Body temperature 2021-06-12 12:44:00 36.67 Patricia Univ ersity [facility] [place] [facility] Oxygen saturation in 2021-06-12 12:44:00 100 /min University of Arterial blood by [facility] Pulse oximetry Branch Systolic blood 2021-06-12 09:19:00 105 mm[Hg] Univer sity of [facility] [place] [facility] Diastolic blood 2021-06-12 09:19:00 59 mm[Hg] Unive rsity of [facility] [place] [facility] Respiratory rate 2021-06-12 09:19:00 16 /min Univ ersity [facility] [place] [facility] Heart rate 2021-06-12 05:25:00 82 /min [facility]i [facility] [place] [facility] Systolic blood 2021-06-09 19:18:00 128 mm[Hg] Univer sity of [facility] [place] [facility] Diastolic blood 2021-06-09 19:18:00 83 mm[Hg] Unive rsity of [facility] [place] [facility] Heart rate 2021-06-09 19:17:00 97 /min Universi ty [facility] [place] [facility] Body temperature 2021-06-09 19:17:00 36.94 Patricia Univ ersity [facility] [place] [facility] Respiratory rate 2021-06-09 19:17:00 18 /min Univ ersity [facility] [place] [facility] Body height 2021-06-09 19:17:00 157.5 cm [facility]i [facility] [place] [facility] Body weight 2021-06-09 19:17:00 108.274 kg [facility] [place] [facility] BMI 2021-06-09 19:17:00 43.66 kg/m2 [facility] [place] [facility] Systolic blood 2021-06-02 20:33:00 134 mm[Hg] Univer sity of [facility] [place] [facility] Diastolic blood 2021-06-02 20:33:00 78 mm[Hg] Unive rsity of [facility] [place] [facility] Heart rate 2021-06-02 20:32:00 91 /min Universi [facility] [place] [facility] Respiratory rate 2021-06-02 20:32:00 19 /min Univ ersity [facility] [place] [facility] Body height 2021-06-02 20:32:00 157.5 cm [facility] [place] [facility] Body weight 2021-06-02 20:32:00 107.758 kg [facility] [place] [facility] BMI 2021-06-02 20:32:00 43.45 kg/m2 [facility] [place] [facility] Systolic blood 2021-05-31 12:30:00 117 mm[Hg] Univer sity of [facility] [place] [facility] Diastolic blood 2021-05-31 12:30:00 68 mm[Hg] Unive rsity of [facility] [place] [facility] Heart rate 2021-05-31 12:30:00 73 /min [facility]i [facility] [place] [facility] Body temperature 2021-05-31 12:30:00 36.61 Patricia Univ ersity [facility] [place] [facility] Respiratory rate 2021-05-31 12:30:00 12 /min Univ ersity [facility] [place] [facility] Oxygen saturation in 2021-05-31 12:30:00 100 /min University of Arterial blood by [facility] Pulse oximetry Branch Body height 2021-05-31 06:53:00 157.5 cm [facility]i [facility] [place] [facility] Body weight 2021-05-31 06:53:00 107.049 kg [facility] [place] [facility] BMI 2021-05-31 06:53:00 43.16 kg/m2 [facility] [place] [facility] Systolic blood 2021-05-10 22:08:00 136 mm[Hg] Univer [facility]ity of [facility] [place] [facility] Diastolic blood 2021-05-10 22:08:00 79 mm[Hg] Unive rsity of [facility] [place] [facility] Heart rate 2021-05-10 22:08:00 79 /min [facility]i [facility] [place] [facility] Body temperature 2021-05-10 20:41:00 36.83 Patricia Univ ersity of [facility] Respiratory rate 2021-05-10 20:41:00 18 /min Univ ersity of [facility] Body height 2021-05-10 20:41:00 157.5 cm Universi ty [facility] [place] [facility] Body weight 2021-05-10 20:41:00 107.321 kg Universi [facility] BMI 2021-05-10 20:41:00 43.27 kg/m2 Universi [facility] Systolic blood 2021-05-10 22:08:00 136 mm[facility]Hg[facility] Diastolic blood 2021-05-10 22:08:00 79 mm[Hg] [facility] Heart rate 2021-05-10 22:08:00 79 /min [facility] Body temperature 2021-05-10 20:41:00 36.83 Patricia [facility] Respiratory rate 2021-05-10 20:41:00 18 /min [facility] Body height 2021-05-10 20:41:00 157.5 cm [facility] Body weight 2021-05-10 20:41:00 107.321 kg [facility] BMI 2021-05-10 20:41:00 43.27 kg/m2 [facility] Procedures Procedure Date / Time Performing Clinician Source Performed AUTHORIZATION FOR 2022-08-02 05:01:00 Doctor Unassigned, No [facility] RELEASE OF PHI Name [facility] POCT URINALYSIS W/O 2021-06-23 00:00:00 Carito Marquez [facility] SPECIFIC GRAVITY [facility] CBC WITH DIFF 2021-06-12 09:26:00 Carito Marquez [facility] COVID-19 (ID NOW RAPID 2021-06-11 14:57:00 Carito Marquez [facility] TESTING) [facility] EXTRA TUBE LAV 2021-06-11 13:44:00 Carito Marquez [facility] EXTRA TUBE LT. GREEN 2021-06-11 13:44:00 Carito Marquez [facility] EXTRA TUBE RED 2021-06-11 13:44:00 Carito Marquez [facility] BASIC METABOLIC PANEL 2021-06-11 13:37:00 Carito Marquez [facility] (NA, K, CL, CO2, Medical Branch GLUCOSE, BUN, CREATININE, CA) CBC WITH DIFF 2021-06-11 13:37:[address] [facility] PROTHROMBIN TIME / INR 2021-06-11 13:37:00 Carito Marquez [facility] ACTIVATED PARTIAL 2021-06-11 13:37:00 Carito Marquez [facility] THRMPLAS GUMARO [facility] HB ABO GROUPING 2021-06-11 12:38:00 Jimmy [facility] RHO (D) IMMUNE GLOBULIN 2021-06-11 12:38:00 Carito Marquez [facility] ASSIGNMENT OF BENEFITS 2021-06-11 12:28:14 Doctor Unassigned, No [facility] POCT URINALYSIS W/O 2021-06-09 19:42:00 Carito Marquez [facility] SPECIFIC GRAVITY [facility] POCT URINALYSIS W/O 2021-06-02 20:36:00 Carito Marquez [facility] SPECIFIC GRAVITY [facility] POCT GLUCOSE (AUTOMATED) 2021-05-31 12:28:[address] [facility] CBC WITH DIFF 2021-05-31 10:37:00 Josefina Edward [facility] ADC CLC OR LCC ONLY - 2021-05-31 07:28:00 Josefina Edward [facility] ADC ONLY - FERN TEST 2021-05-31 07:22:00 Josefina Edward [facility] COVID-19 (ID NOW RAPID 2021-05-31 07:22:00 [facility] NOTICE OF PRIVACY 2021-05-31 06:08:47 Doctor Unassigned, No [facility] PRACTICES Name [facility] CONSENT/REFUSAL FOR 2021-05-31 06:08:10 Doctor [facility]igned, No [facility] CONSENT/REFUSAL FOR 2021-05-31 06:08:09 Doctor [facility]assigned, No [facility] US FIRST 2021-05-05 21:25:14 Carito Marquez [facility] TRIMESTER LESS THAN 14 Medical B ranch WEEKS WITH TRANSVAGINAL CREATININE U 24 HR 2021-05-05 20:30:00 Carito Marquez Universit y [facility] PROTEIN QUANT U/24H 2021-05-05 20:30:00 Carito Marquez Universi ty [facility] SCANNED LAB RESULTS 2021-05-01 05:01:00 [facility] 2021-04-28 19:15:49 Doctor Unassigned, No [facility] Encounters Start End Encounter Admission Attending Care Care Encounter Source Date/Time Date/Time Type Type Clinicians Facility Department ID 2021-08-28 Outpatient X [facility] KAELYN [id number] Univers 13:01:43 ity [facility] 2021-08-28 Emergency [facility] [id number] Univers 12:56:54 ity [facility] 2022-08-02 2022-08-02 Orders Doctor GIMENEZ [id number] Univers 00:00:00 00:00:00 Only UnassignedLIVE [id number] [facility] [id number] [place] as [id number] [facility] 009 Branch 2021-12-29 2021-12-29 Outpatient R CARITO AMRQUEZ [facility] [id number] Univers 14:30:00 14:30:00 ity [facility] 2021-06-30 2021-06-30 Office Carito Marquez [facility] Manzana[place] [id number] Univers 14:26:04 15:33:39 Visit Juan Diop [id number] it y of [facility] [id number] [facility] [id number] [facility] 134 Branch 2021-06-30 2021-06-30 Outpatient R CARITO MARQUEZ [facility] [id number] Univers 14:30:00 14:30:00 ity of [facility] 2021-06-23 2021-06-23 Office Carito Marquez [facility] [place] [id number] Univers 10:09:30 10:51:14 Visit Juan Diop [id number] it [facility] [id number] [place] [facility] [id number] [address] 2021-06-23 2021-06-23 Office Carito Marquez [id number] Univers 10:09:30 10:51:14 Visit Juan Jadon [id number] it [facility] [id number] [place] [facility] [id number] [address] 2021-06-23 2021-06-23 Outpatient R CARITO MARQUEZ [facility] [id number] Univers 10:15:00 10:15:00 ity of [facility] 2021-06-19 2021-06-19 Routine Carito Marquez HIERNESTO 1.2.479.401 [id number] Univers 15:13:27 16:02:42 Cam Dayami 350.1.13.10 ity of [place] [phone] Vt dical nal [address] [place] [address] 2021-06-19 2021-06-19 Outpatient R CARITO MARQUEZ [facility] [id number] Univers 15:00:00 15:00:00 ity of [facility] 2021-06-19 2021-06-19 Patient Carito Marquez HIERNESTO 1.2.299.961 [id number] Univers 00:00:00 00:00:00 Secure Msg Juan Stock 350.1.13.10 ity of [place] [phone] Vt dical nal [address] [place] [address] 2021-06-16 2021-06-16 Routine Carito Marquez 1.2.840.114 [id number] Univers 15:02:42 15:47:54 Juan Diop 350.1.13.10 i ty of [place] [phone] [address] 2021-06-16 2021-06-16 Outpatient R CARITO MARQUEZ [facility] [id number] Univers 15:00:00 15:00:00 ity of [facility] 2021-06-12 2021-06-12 Outpatient P [facility] [id number] Univers 11:45:00 11:45:00 ity of [facility] 2021-06-11 2021-06-12 Hospital Carito Marquez [facility] 1.2.840.114 [id number] Univers 07:28:00 11:20:00 Encounter Josefina Edward Dayami 350.1.13.10 [place] [phone] [facility] [address] [place] 2021-06-11 2021-06-11 Orders Doctor AMMY 1.2.840.114 [id number] Univers 00:00:00 00:00:00 Only Unassigned, LIVE 350.1.13.10 ity of [place] [facility] 4.2.7.2.686 Mina as [phone] [facility] [address] 2021-06-09 2021-06-09 Routine Carito Marquez [facility] 1.2.840.114 [id number] Univers 14:05:53 14:53:51 Juan Diop 350.1.13.10 i ty of [place] [phone] [facility] [address] [place] 2021-06-09 2021-06-09 Outpatient R JIMMY CARITO [facility] [id number] Univers 14:30:00 14:30:00 ity of [facility] 2021-06-05 2021-06-05 Telephone Carito Marquez [facility] 1.2.840.114 [id number] Univers 00:00:00 00:00:00 Juan Stock 350.1.13.10 i ty of [place] [phone] Vt dical nal 134 [facility] 2021-06-02 2021-06-02 Routine Carito Marquez [facility] 1.2.840.114 [id number] Univers 15:13:44 16:03:07 Juan Diop 350.1.13.10 i ty of Visit [place] [phone] [address] 2021-06-02 2021-06-02 Outpatient R CARITO MARQUEZ [facility] [id number] Univers 15:15:00 15:15:00 ity of [facility] 2021-05-31 2021-05-31 Emergency Josefina Edward [facility] 1.2.840.114 [id number] Univers 01:18:00 09:50:00 Carito Marquez Dayami 350.1.13.10 ity [place] [phone] [facility] [address] [place] 2021-05-31 2021-05-31 Orders Doctor AMMY 1.2.840.114 [id number] Univers 00:00:00 00:00:00 Only Unassigned, LIVE 350.1.13.10 [facility] 4.2.7.2.686 [place] as [phone] [facility] [address] [place] 2021-05-26 2021-05-26 Outpatient R CARITO MARQUEZ [facility] [id number] Univers 14:30:00 14:30:00 ity of [facility] 2021-05-10 2021-05-10 [facility] 1.2.672.027 [id number] 15:33:03 16:58:41 Cam [place] 350.1.13.10 Visit [place] 4.2.7.2.686 Professio [phone] [address] 2021-05-10 2021-05-10 Routine Carito Marquez HIERNESTO 1.2.934.905 [id number] Univers 15:33:03 16:58:41 Cam [place] 350.1.13.10 ity [place] [facility] [phone] Vt dical [address] 2021-05-10 2021-05-10 Outpatient R CARITO MARQUEZ [facility] [id number] Univers 15:30:00 15:30:00 ity [facility] 2021-05-09 2021-05-09 Case Archienavid [facility] 1.2.148.441 [id number] 00:00:00 00:00:00 Management Opal [place] 350.1.13.10 [place] 4.2.7.2.686 Professio [phone] [address] 2021-05-09 2021-05-09 Telephone Carito Marquez [facility] 1.2.840.114 [id number] 00:00:00 00:00:00 Cam [place] 350.1.13.10 [place] 4.2.7.2.686 Professio [phone] [address] 2021-05-09 2021-05-09 [facility] 1.2.088.009 [id number] [facility] 00:00:00 00:00:00 Management Opal [place] 350.1.13.10 [place] of [place] [phone] [address] 2021-05-09 2021-05-09 [facility] 1.2.840.114 [id number] [facility] 00:00:00 00:00:00 Cam [place] 350.1.13.10 i ty of [place] [phone] [address] 2021-05-05 2021-05-05 [facility] 1.2.840.114 [id number] [facility] 15:00:00 23:59:00 Encounter Cam [place] 350.1.13.10 ity of [place] [phone] [address] 2021-05-05 2021-05-05 [facility] Carito Marquez [facility] 1.2.840.114 [id number] 15:00:00 23:59:00 Encounter Cam [place] 350.1.13.10 [place] 4.2.7.2.686 [place] [phone] 806 2021-05-05 2021-05-05 Site Superintendent Jesse, Adc Lab Main [facility] 1.2.8 40.114 [id number] [facility] 15:14:32 15:29:32 Visit Carito Marquezton 350.1.13.10 ity of [place] [phone] [facility] [address] [facility] 2021-05-05 2021-05-05 Site Superintendent Noah Molina [facility] 1.2.840.114 [id number] 15:14:32 15:29:32 Visit Lab Main [place] 350.1.13.10 [place] 4.2.7.2.686 Professio [phone] [address] 2021-05-05 2021-05-05 Outpatient R JIMMY [facility] [id number] Univers 00:00:00 00:00:00 ity of [facility] 2021-05-05 2021-05-05 Telephone Jimmy [facility] 1.2.840.114 [id number] Univers 00:00:00 00:00:00 Juan Stock 350.1.13.10 i ty of [place] [phone] [facility] 134 [facility] 2021-05-01 2021-05-01 Outpatient R JIMMY CARITO [facility] [id number] Univers 11:45:00 11:45:00 ity [facility] 2021-05-01 2021-05-01 Site Superintendent Noah Molina Lab Main [facility] 1.2.8 40.114 [id number] Univers 10:54:23 11:09:23 Visit Carito Marquez 350.1.13.10 ity of [place] [phone] [address] 2021-05-01 2021-05-01 Orders Doctor GIMENEZ 1.2.840.114 [id number] Univers 00:00:00 00:00:00 Only Unassigned, LIVE 350.1.13.10 ity of [place] [facility] 4.2.7.2.686 Mina as [phone] [address] 2021-05-01 2021-05-01 Orders Doctor GIMENEZ 1.2.840.114 [id number] 00:00:00 00:00:00 Only Unassigned, LIVE 350.1.13.10 [place] [facility] 4.2.7.2.686 [phone] 009 2021-04-28 2021-04-28 Outpatient R CARITO MARQUEZ [facility] [id number] Univers 14:30:00 14:30:00 ity of [facility] 2021-04-28 2021-04-28 Orders Doctor AMMY 1.2.840.114 [id number] Univers 00:00:00 00:00:00 Only Unassigned, LIVE 350.1.13.10 ity of [place] [facility] 4.2.7.2.686 [place] as [phone] [address] Results Test Description Test Time Test Comments Results Result Comments Source POCT URINALYSIS W/O SPECIFIC GRAVITY 2021-06-23 15:34:00 Test Item Value Reference Range Interpretation Comme nts POCT PH U (test code = 3254) 7 mg/dl 5-8 POCT U LEUK EST (test code = 3263) 2+ Negative - Negative POCT U NIT (test code = 3262) negative Negative - Negative POCT U PROT (test code = 3259) trace Negative - Negative POCT U GLU (test code = 3256) negative Negative - Negative POCT U KETONE (test code = 3258) negative Negative - Negative POCT U BLD (test code = 3257) 2+ Negative - Negative [facility]/O SPECIFIC [id number] 15:34:00 Test Item Value Reference Range Interpretation Comments POCT PH U (test code = 3254) 7 mg/dl 5-8 POCT U LEUK EST (test code = 2+ Negative - Negative 3263) POCT U NIT (test code = 3262) negative Negative - Negative POCT U PROT (test code = 3259) trace Negative - Negative POCT U GLU (test code = 3256) negative Negative - Negative POCT U KETONE (test code = 3258) negative Negative - Negative POCT U BLD (test code = 3257) 2+ Negative - Negative [facility] CenterCBC with [id number] 09:51:22 Test Item Value Reference Range Interpretation Comments WBC (test code = See_Comment [Automated 6690-2) message] The sy stem which generated this result transmitted reference range : 4.30 - 11.10 10*3/?L. The reference range was not used to interpret this result as normal/abnormal . RBC (test code = See_Comment L [Automated 789-8) message] The sy stem which generated this result transmitted reference range : 3.93 - 5.25 10*6/?L. The reference range was not used to interpret this result as normal/abnormal . HGB (test code = 9.1 g/dL 11.6-15.0 L 718-7) HCT (test code = 28.2 % 35.7-45.2 L 4544-3) MCV (test code = 74.6 fL 80.6-95.5 L 787-2) MCH (test code = 24.1 pg 25.9-32.8 L 785-6) MCHC (test code = 32.3 g/dL 31.6-35.1 786-4) RDW-SD (test code = 41.6 fL 39.0-49.9 29499-5) RDW-CV (test code = 15.4 % 12.0-15.5 788-0) PLT (test code = See_Comment [Automated 777-3) message] The sy stem which generated this result transmitted reference range : 166 - 358 10*3/ ?L. The reference r antony was not used to interpret this result as normal/abnormal . MPV (test code = 10.1 fL 9.5-12.9 55368-2) NRBC/100 WBC (test See_Comment [Automat ed code = 9553726916) message] The system which generated this result transmitted reference range : 0.0 - 10.0 /100 WBCs. The refer ence range was not u sed to interpret th is result as normal/abnormal . NRBC x10^3 (test code <0.01 See_Comment [Auto mated = 8608457423) message] The s ystem which generated this result transmitted reference range : 10*3/?L. The reference range was not used to interpret this result as normal/abnormal . GRAN MAT (NEUT) % 72.7 % (test code = 770-8) IMM GRAN % (test code 0.90 % = 6356208549) LYMPH % (test code = 19.9 % 736-9) MONO % (test code = 4.9 % 5905-5) EOS % (test code = 1.3 % 713-8) BASO % (test code = 0.3 % 706-2) GRAN MAT x10^3(ANC) 7.51 10*3/uL 1.88-7.09 H (test code = 2110851224) IMM GRAN x10^3 (test 0.09 10*3/uL 0.00-0.06 H code = 3162215300) LYMPH x10^3 (test code 2.06 10*3/uL 1.32-3.29 = 731-0) MONO x10^3 (test code 0.51 10*3/uL 0.33-0.92 = 742-7) EOS x10^3 (test code = 0.13 10*3/uL 0.03-0.39 711-2) BASO x10^3 (test code 0.03 10*3/uL 0.01-0.07 = 704-7) Lab Interpretation Abnormal (test code = 63398-9) [facility] CenterRHO (D) IMMUNE [id number] 19:14:06 Test Item Value Reference Range Interpretation Comments RHIG CANDIDATE? No- see comment Patient i s not a (test code = candidate for R hIg- 5055) Patient is Rh Positive.Perfor med at [facility] Laboratory Services - [facility] Blood [address] [place], [place] [address]Toll Free: [phone] A No. [id number] [facility] CenterCOVID-19 (ID NOW RAPID TESTING)2021-06-11 15:38:46 Test Item Value Reference Range Interpretation Comments SARS-CoV-2 Rapid ID NOW Not Detected Not Detected (test code = 78453-0) NURY (test code = NURY) ID NOW COVID-19 Assay is an isothermal nucleic acid amplification test intended for the qualitative detection of nucleic acid from SARS-CoV-2 viral RNA in nasopharyngeal (VISUAL JOURNALIST) specimens. It is used under Emergency Use Authorization (EUA) by FDA. The limit of detection (LOD) of the assay is 125 Genome Equivalents/mL. A positive result is indicative of the presence of SARS-CoV-2 RNA. ?Clinical correlation with patient history and other diagnostic information is necessary to determine patient infection status. A negative (Not Detected) result does not preclude SARS-CoV-2 infection. In patients with clinical symptoms and other tests that are consistent with SARS-CoV-2 infection, negative results should be treated as presumptive negative and a new specimen should be tested with alternative PCR molecular test. Invalid: Please collect a new specimen for repeat patient testing if clinically indicated. Lab Interpretation Normal (test code = 79071-2) [facility] CenterType and Screen - ONCE [id number] 14:48:32 Test Item Value Reference Range Interpretation Comments ABO & RH (test code A Positive Performe d at [facility] = 20) Laboratory Serv [facility] Blood Bank[address] [place], [place] [address]Toll Free: [phone] A No. [id number] IAT (test code = Negative Performed a t [facility] 1185) Laboratory [facility] Blood Bank1 [address] [place], [place] [address]Toll Free: [phone] A No. [id number] [facility] CenterACTIVATED PARTIAL THRMPLAS [id number] 14:19:08 Test Item Value Reference Range Interpretation Comments APTT Patient (test See_Comment [Automat ed code = 3173-2) message] The system which generated this result transmitted reference range : 23 - 38 Seconds . The reference range was not used to interpr et this result as normal/abnormal . NURY (test code = NURY) The [facility] patient population mean normal value for aPTT is 30 seconds. Lab Interpretation Normal (test code = 15103-4) [facility] CenterPROTHROMBIN TIME / [id number] 14:17:12 Test Item Value Reference Range Interpretation Comments PROTIME PATIENT (test See_Comment [Auto mated message] code = 5964-2) The system wh ich generated this result transmitted ref erence range: 12.0 - 1 4.7 Seconds. The re ference range was not u sed to interpret this result as normal/abnor mal. INR (test code = 6301-6) Nor mal INR <1.1; Warfarin Therap eutic range 2.0 to 3. 0 or 2.5 to 3.5, dep ending upon the indica tions. Lab Interpretation (test Normal code = 92317-7) [facility] METABOLIC PANEL (NA, K, CL, CO2, GLUCOSE, BUN, CREATININE, CA)2021-06-11 14:13:48 Test Item Value Reference Range Interpretation Comments NA (test code = 132 mmol/L 135-145 L 9951207779) K (test code = 4.3 mmol/L 3.5-5.0 9805931972) CL (test code = 103 mmol/L 98-108 1556337100) CO2 TOTAL (test code = 25 mmol/L 23-31 9706810428) AGAP (test code = 2-16 2165898624) BUN (test code = 6 mg/dL 7-23 L 9810900087) GLUCOSE (test code = 180 mg/dL 70-110 H 5969501433) CREATININE (test code = 0.42 mg/dL 0.50-1.04 L 5742469472) CALCIUM (test code = 8.7 mg/dL 8.6-10.6 3348167538) eGFR (test code = mL/min/1.73m2 7736587086) NURY (test code = NURY) Association of Glomerular Filtration Rate (GFR) and Staging of Kidney Disease* + --+ --+ ------+| GFR (mL/min/1.73 m2) ?| With Kidney Damage ?| ?Without Kidney Damage+ --------+ --------+ +| ?>90 ?| ?Stage one ?| ? Normal ?+ ---+ ---+ -------+| ?60-89 ?| ?Stage two ?| ? Decreased GFR ? + --+ --+ ------+| ?30-59 ?| ?Stage three ?| ? Stage three ? + --+ --+ ------+| ?15-29 ?| ?Stage four ? | ? Stage four ?+ ---+ ---+ -------+| ?<15 (or dialysis) ? ?| ?Stage five ? | ? Stage five ?+ ---+ ---+ -------+ *Each stage assumes the associated GFR level has been in effect for at least three months. ?Stages 1 to 5, with or without kidney disease, indicate chronic kidney disease. Notes: Determination of stages one and two (with eGFR >59mL/min/1.73 m2) requires estimation of kidney damage for at least three months as defined by structural or functional abnormalities of the kidney, manifested by either:Pathological abnormalities or Markers of kidney damage (including abnormalities in the composition of the blood or urine or abnormalities in imaging tests). Lab Interpretation Abnormal (test code = 77594-6) [facility] WITH [id number] 13:59:51 Test Item Value Reference Range Interpretation Comments WBC (test code = See_Comment H [Automated 6690-2) message] The system which generated this result transmit daisy reference range : 4.30 - 11.10 10*3/?L. The reference range was not used to interpret this result as normal/abnormal . RBC (test code = See_Comment [Automated 789-8) message] The system which generated this result transmit daisy reference range : 3.93 - 5.25 10*6/?L. The reference range was not used to interpret this result as normal/abnormal . HGB (test code = 10.0 g/dL 11.6-15.0 L 718-7) HCT (test code = 30.4 % 35.7-45.2 L 4544-3) MCV (test code = 73.8 fL 80.6-95.5 L 787-2) MCH (test code = 24.3 pg 25.9-32.8 L 785-6) MCHC (test code = 32.9 g/dL 31.6-35.1 786-4) RDW-SD (test code = 41.3 fL 39.0-49.9 53834-2) RDW-CV (test code = 15.4 % 12.0-15.5 788-0) PLT (test code = See_Comment [Automated 777-3) message] The system which generated this result transmit daisy reference range : 166 - 358 10*3/ ?L. The reference range was not u sed to interpret th is result as normal/abnormal . MPV (test code = 10.7 fL 9.5-12.9 44269-9) NRBC/100 WBC (test See_Comment [Automat ed code = 4518603555) message] The system which generated this result transmit daisy reference range : 0.0 - 10.0 /100 WBCs. The reference range was not used to interpret this result as normal/abnormal . NRBC x10^3 (test code <0.01 See_Comment [Auto mated = 2099520503) message] The system which generated this result transmit daisy reference range : 10*3/?L. The reference range was not used to interpret this result as normal/abnormal . GRAN MAT (NEUT) % 85.0 % (test code = 770-8) IMM GRAN % (test code 0.90 % = 1386580153) LYMPH % (test code = 8.1 % 736-9) MONO % (test code = 5.4 % 5905-5) EOS % (test code = 0.3 % 713-8) BASO % (test code = 0.3 % 706-2) GRAN MAT x10^3(ANC) 12.67 10*3/uL 1.88-7.09 H (test code = 9987205277) IMM GRAN x10^3 (test 0.13 10*3/uL 0.00-0.06 H code = 3328977566) LYMPH x10^3 (test code 1.20 10*3/uL 1.32-3.29 L = 731-0) MONO x10^3 (test code 0.80 10*3/uL 0.33-0.92 = 742-7) EOS x10^3 (test code = 0.05 10*3/uL 0.03-0.39 711-2) BASO x10^3 (test code 0.05 10*3/uL 0.01-0.07 = 704-7) Lab Interpretation Abnormal (test code = 45426-0) [facility] URINALYSIS W/O SPECIFIC [id number] 19:42:00 Test Item Value Reference Range Interpretation Comments POCT PH U (test code = 3254) N/A 5-8 POCT U LEUK EST (test code = N/A Negative - Negative 3263) POCT U NIT (test code = 3262) N/A Negative - Negative POCT U PROT (test code = 3259) Negative Negative - Negative POCT U GLU (test code = 3256) 1+ Negative - Negative POCT U KETONE (test code = 3258) N/A Negative - Negative POCT U BLD (test code = 3257) N/A Negative - Negative [facility] URINALYSIS W/O SPECIFIC [id number] 20:36:00 Test Item Value Reference Range Interpretation Comments POCT PH U (test code = 3254) n/a 5-8 POCT U LEUK EST (test code = n/a Negative - Negative 3263) POCT U NIT (test code = 3262) n/a Negative - Negative POCT U PROT (test code = 3259) negative Negative - Negative POCT U GLU (test code = 3256) Negative - Negative POCT U KETONE (test code = 3258) n/a Negative - Negative POCT U BLD (test code = 3257) n/a Negative - Negative Lab Interpretation (test code = Normal 98124-2) [facility] GLUCOSE (AUTOMATED)2021-05-31 13:26:39 Test Item Value Reference Range Interpretation Comments POCT GLU (test code = 3364696526) 153 mg/dL 70-110 H Lab Interpretation (test code = Abnormal 37971-3) [facility] WITH [id number] 11:05:46 Test Item Value Reference Range Interpretation Comments WBC (test code = See_Comment [Automated 6690-2) message] The sy stem which generated this result transmitted reference range : 4.30 - 11.10 10*3/?L. The reference range was not used to interpret this result as normal/abnormal . RBC (test code = See_Comment [Automated 789-8) message] The sy stem which generated this result transmitted reference range : 3.93 - 5.25 10*6/?L. The reference range was not used to interpret this result as normal/abnormal . HGB (test code = 10.3 g/dL 11.6-15.0 L 718-7) HCT (test code = 32.0 % 35.7-45.2 L 4544-3) MCV (test code = 73.4 fL 80.6-95.5 L 787-2) MCH (test code = 23.6 pg 25.9-32.8 L 785-6) MCHC (test code = 32.2 g/dL 31.6-35.1 786-4) RDW-SD (test code = 41.2 fL 39.0-49.9 78069-9) RDW-CV (test code = 15.7 % 12.0-15.5 H 788-0) PLT (test code = See_Comment [Automated 777-3) message] The sy stem which generated this result transmitted reference range : 166 - 358 10*3/ ?L. The reference r antony was not used to interpret this result as normal/abnormal . MPV (test code = 10.1 fL 9.5-12.9 99900-3) NRBC/100 WBC (test See_Comment [Automat ed code = 4726964906) message] The system which generated this result transmitted reference range : 0.0 - 10.0 /100 WBCs. The refer ence range was not u sed to interpret th is result as normal/abnormal . NRBC x10^3 (test code <0.01 See_Comment [Auto mated = 4427840696) message] The s ystem which generated this result transmitted reference range : 10*3/?L. The reference range was not used to interpret this result as normal/abnormal . GRAN MAT (NEUT) % 67.2 % (test code = 770-8) IMM GRAN % (test code 0.50 % = 3687341885) LYMPH % (test code = 24.1 % 736-9) MONO % (test code = 6.5 % 5905-5) EOS % (test code = 1.3 % 713-8) BASO % (test code = 0.4 % 706-2) GRAN MAT x10^3(ANC) 5.57 10*3/uL 1.88-7.09 (test code = 6971449238) IMM GRAN x10^3 (test 0.04 10*3/uL 0.00-0.06 code = 0662498873) LYMPH x10^3 (test code 2.00 10*3/uL 1.32-3.29 = 731-0) MONO x10^3 (test code 0.54 10*3/uL 0.33-0.92 = 742-7) EOS x10^3 (test code = 0.11 10*3/uL 0.03-0.39 711-2) BASO x10^3 (test code 0.03 10*3/uL 0.01-0.07 = 704-7) Lab Interpretation Abnormal (test code = 34593-9) [facility] CLC OR [facility] ONLY - WET [id number] 08:03:08 Test Item Value Reference Range Interpretation Comments CLUE CELLS WET PREP (test code = None Seen None Seen HPF 7892968396) BACTERIA WET PREP (test code = Few None Seen HPF A 0395348668) WBC WET PREP (test code = Few None Seen HPF A 6565389396) RBC WET PREP (test code = Few None Seen HPF A 1536968247) TRICHOMONAS WET PREP (test code = None Seen None Seen HPF 1632445206) YEAST WET PREP (test code = Few None Seen HPF A 7171847062) Lab Interpretation (test code = Abnormal 03486-6) [facility] ONLY - FERN [id number] 07:59:02 Test Item Value Reference Range Interpretation Comments Fern Test (test code = 2739650539) Negative [facility] (ID NOW RAPID TESTING)2021-05-31 07:56:05 Test Item Value Reference Range Interpretation Comments SARS-CoV-2 Rapid ID NOW Not Detected Not Detected (test code = 56220-8) NURY (test code = NURY) ID NOW COVID-19 Assay is an isothermal nucleic acid amplification test intended for the qualitative detection of nucleic acid from SARS-CoV-2 viral RNA in nasopharyngeal (VISUAL JOURNALIST) specimens. It is used under Emergency Use Authorization (EUA) by FDA. The limit of detection (LOD) of the assay is 125 Genome Equivalents/mL. A positive result is indicative of the presence of SARS-CoV-2 RNA. ?Clinical correlation with patient history and other diagnostic information is necessary to determine patient infection status. A negative (Not Detected) result does not preclude SARS-CoV-2 infection. In patients with clinical symptoms and other tests that are consistent with SARS-CoV-2 infection, negative results should be treated as presumptive negative and a new specimen should be tested with alternative PCR molecular test. Invalid: Please collect a new specimen for repeat patient testing if clinically indicated. Lab Interpretation Normal (test code = 14117-1) [facility] FIRST TRIMESTER LESS THAN 14 WEEKS WITH [id number] 21:56:48 Single live intrauterine gestation with crown-rump length consistent withgestational age 13 weeks 1day. The heart tone measures 179 bpm. Preliminary Report Dictated by Resident: Elliott Antonio I, Colleen Oneal MD., have reviewed this study and agree with the abovereport.EXAM: US FIRST TRIMESTER LESS THAN 14 WEEKS WITH TRANSVAGINAL HISTORY: 36 years -old Female; dating, unsure LMP .LMP = 01/27/2021.Gestational age by LMP 14 weeks 0 days. Beta-hCG: Not available at the timeof dictation. G/P: A2. TECHNIQUE: Survey transabdominal ultrasound imaging and color Dopplerevaluation ofthe pelvis was performed. M-mode was used to evaluate thefetal heart. Players Assistant images were obtained. COMPARISON: None FINDINGS: The patient did not wish to receive transvaginal imaging. Uterus: The uterus measures 19.8 x 8.0 x 12.9 cm. An intrauterine gestational sacis present. The pole isvisualized, with the crown-rump lengthmeasuring 6.9 cm. heart tones are present, measuring 179bpm. Right Adnexa:Ovary: The right ovary measures 3.9 x 2.0 x 2.3 cm. The right ovary isunremarkable. Left Adnexa:Ovary: The left ovary measures 3.7 x 2.1 x 2.9 cm. The left ovary isunremarkable. Cul-de-sac: Unremarkable. Nmmb, Radiant Results Inft User - 05/05/2021 4:57 PM CDT EXAM: US FIRST TRIMESTER LESS THAN 14 WEEKS WITH TRANSV AGINALHISTORY: 36 years -old Female; dating, unsure LMP . LMP = 01/27/2021.Gestational age by LMP 14 weeks 0 days. Beta-hCG: Not available at the timeof dictation. G/P: A2.TECHNIQUE: Survey transabdominal ultrasound imaging and color Dopplerevaluation of the pelvis was performed. M-mode was used to evaluate thefetal heart. Players Assistant images were obtained.COMPARISON: NoneFINDINGS:The patient did not wish to receive transvaginal imaging. Uterus: The uterus measures 19.8 x 8.0 x 12.9 cm. An intrauterine gestational sacis present. The pole is visualized, with the crown-rump lengthmeasuring 6.9 cm. heart tones are present, measuring 179 bpm.Right Adnexa:Ovary: The right ovary measures 3.9 x 2.0 x 2.3 cm. The right ovary isunremarkable. Left Adnexa:Ovary: The left ovary measures 3.7x 2.1 x 2.9 cm. The left ovary isunremarkable. Cul-de-sac: Unremarkable.IMPRESSIONSingle live intrauterine gestation with crown-rump length consistent withgestational age 13 weeks 1 day. The heart tone measures 179 bpm.Preliminary Report Dictated by Resident: Colleen Aly MD.,have reviewed this study and agree with the abovereport.[facility] CenterCREAT[facility] U 24 [id number] 21:39:59 Test Item Value Reference Range Interpretation Comments T. VOL U (test code 2000 mL = [id number]) HR COLLECT (test Hours code = 0160755269) CREAT U (test code = 69.3 mg/dL 2324382534) CREA U/24H (test See_Comment [Automated message] code = 3523165905) The syste m which generated this result transmitted ref erence range: 0.8 - 1. 8 g/24H. The reference r antony was not used to int erpret this result as normal/abnormal . [facility] CenterPROTE[facility] QUANT [id number] 21:39:49 Test Item Value Reference Range Interpretation Comments T. VOL U (test code = 2000 mL [id number]) HR COLLECT (test code Hours = 3453408414) T. PROT U (test code <5 mg/dL = 2888-6) PRO U/24HR (test code Unable to calculate = 6301498830) because Protei n Urine is less than the s ensitivity of the analyzer . [facility]
--- NOTE | 2023-03-29 07:24 | ER ---
Nurse's Notes [facility] Name: Vicki Vizcaino Age: 38 yrs Sex: Female : 1985 Arrival Date: 03/29/2023 Time: 06:49 Bed 13 Private MD: Diagnosis: Pain in left arm Presentation: 03/29 07:14 Chief complaint: Left forearm and wrist pain 10/10. Denies injury. Pt reports multiple hb failed IV starts in that area during delivery of baby 2 months ago. Coronavirus screen: At this time, the client does not indicate any symptoms associated with coronavirus-19. Ebola Screen: No symptoms or risks identified at this time. Initial Sepsis Screen: Does the patient meet any 2 criteria? No. Patient's initial sepsis screen is negative. Does the patient have a suspected source of infection? No. Patient's initial sepsis screen is negative. Risk Assessment: Do you want to hurt yourself or someone else? Patient reports no desire to harm self or others. Onset of symptoms was January 2023. 07:14 Method Of Arrival: Ambulatory hb 07:14 Acuity: FLAKITO 4 hb Triage Assessment: 07:16 General: Appears in no apparent distress. Behavior is calm, cooperative. Pain: Pain hb currently is 10 out of 10 on a pain scale. Neuro: Level of Consciousness is awake, alert, obeys commands, Oriented to person, place, time, situation. Cardiovascular: Patient's skin is warm and dry. Respiratory: Respiratory effort is even, unlabored, Respiratory pattern is regular, symmetrical. Historical: - Allergies: 07:16 No Known Allergies; hb - Home Meds: 07:16 None [Active]; hb - PMHx: 07:16 None; hb - PSHx: 07:16 None; hb - Immunization history:: Adult Immunizations up to date. - Social history:: Smoking status: Patient denies any tobacco usage or history of. - Family history:: not pertinent. Screenin:30 [facility] ED Fall Risk Assessment (Adult) History of falling in the last 3 months, ss including since admission No falls in past 3 months (0 pts). Abuse screen: Denies threats or abuse. Denies injuries from another. Nutritional screening: No deficits noted. Tuberculosis screening: Never had TB. Assessment: 07:30 General: Appears in no apparent distress. comfortable, Behavior is calm, cooperative. ss Pain: Complains of pain in L arm Pain currently is 10 out of 10 on a pain scale. Quality of pain is described as burning, tender, Is continuous. Neuro: Level of Consciousness is awake, alert, obeys commands. Cardiovascular: Capillary refill < 3 seconds is brisk in bilateral fingers. Respiratory: Airway is patent Respiratory effort is even, unlabored, Respiratory pattern is regular, symmetrical. GI: Patient currently denies diarrhea, nausea, vomiting. EENT: Oral mucosa is moist. Derm: Skin is intact, is healthy with good turgor, Skin is dry, Skin is pink, warm \T\ dry. normal. Musculoskeletal: Swelling absent. Vital Signs: 07:14 BP 147 / 88; Pulse 86; Resp 16; Temp 98.2(O); Pulse Ox 100% on R/A; Weight 104.33 kg; hb Height 5 ft. 2 in. ; Pain 10/10; 07:14 Body Mass Index 42.07 (104.33 kg, 157.48 cm) hb 07:14 Pain Scale: Adult hb ED Course: 06:54 Patient arrived in ED. ag3 07:10 Deshawn Allen MD is Attending Physician. rt 07:16 Triage completed. hb 07:16 Arm band placed on. hb 07:[address] RN is Primary Nurse. ss 07:30 Patient has correct armband on for positive identification. ss 07:30 No provider procedures requiring assistance completed. Patient did not have IV access ss during this emergency room visit. Administered Medications: 07:32 Drug: Ketorolac IM 30 mg Route: IM; Site: right deltoid; ss 07:44 Follow up: Response: No adverse reaction ss Medication: 07:30 VIS not applicable for this client. ss Outcome: 07:24 Discharge ordered by . rt 07:30 Discharged to home ambulatory. ss 07:30 Condition: good 07:30 Discharge instructions given to patient, Instructed on discharge instructions, follow up and referral plans. medication usage, Demonstrated understanding of instructions, follow-up care, medications, Prescriptions given X 2. 07:47 Patient left the ED. ss Signatures: Zaida St RN RN Kerri Vazquez RN RN Maite Graf ag3 Deshawn Allen MD MD rt
--- NOTE | 2023-03-29 07:24 | EDPHYS ---
Physician Documentation [facility] Name: Vicki Vizcaino Age: 38 yrs Sex: Female : 1985 Arrival Date: 03/29/2023 Time: 06:49 Bed 13 Private MD: ED Physician Deshawn Allen HPI: 03/29 07:32 This 38 yrs old Female presents to ER via Ambulatory with complaints of Arm Pain. rt 07:32 Patient presents to the ED with pain in the left wrist for the past 2 months that rt started after she delivered her baby. Patient states that she has left hand has been lifting the baby up in that arm. She states that the pain started in the wrist, at the lateral aspect and radiates up to the shoulder. Denies swelling. Denies fall, other injury. Denies other acute complaints at this time. Pain is aching in nature, mild in severity, no other aggravating alleviating factors.. Historical: - Allergies: 07:16 No Known Allergies; hb - Home Meds: 07:16 None [Active]; hb - PMHx: 07:16 None; hb - PSHx: 07:16 None; hb - Immunization history:: Adult Immunizations up to date. - Social history:: Smoking status: Patient denies any tobacco usage or history of. - Family history:: not pertinent. ROS: 07:32 Constitutional: Negative for fever, chills, and weight loss, Cardiovascular: Negative rt for chest pain, palpitations, and edema, Respiratory: Negative for shortness of breath, cough, wheezing, and pleuritic chest pain, Abdomen/GI: Negative for abdominal pain, nausea, vomiting, diarrhea, and constipation, Skin: Negative for injury, rash, and discoloration, Neuro: Negative for headache, weakness, numbness, tingling, and seizure, Psych: Negative for depression, anxiety, suicide ideation, homicidal ideation, and hallucinations. 07:32 MS/extremity: Positive for pain, Negative for injury or acute deformity. Exam: 07:32 Constitutional: This is a well developed, well nourished patient who is awake, alert, rt and in no acute distress. Head/Face: Normocephalic, atraumatic. Chest/axilla: Normal chest wall appearance and motion. Nontender with no deformity. No lesions are appreciated. Cardiovascular: Regular rate and rhythm with a normal S1 and S2. No gallops, murmurs, or rubs. Normal PMI, no JVD. No pulse deficits. Respiratory: Lungs have equal breath sounds bilaterally, clear to auscultation and percussion. No rales, rhonchi or wheezes noted. No increased work of breathing, no retractions or nasal flaring. Abdomen/GI: Soft, non-tender, with normal bowel sounds. No distension or tympany. No guarding or rebound. No evidence of tenderness throughout. Neuro: Awake and alert, GCS 15, oriented to person, place, time, and situation. Cranial nerves II-XII grossly intact. Motor strength 5/5 in all extremities. Sensory grossly intact. Cerebellar exam normal. Normal gait. Psych: Awake, alert, with orientation to person, place and time. Behavior, mood, and affect are within normal limits. 07:32 Musculoskeletal/extremity: Mild tenderness laterally on left wrist, no swelling noted, pulses, motor, sensation intact. The description of the patient's pain seems to be in a dermatomal fashion up to the trapezius region with mild tenderness at the left superior trapezius area. No overlying skin changes.. Vital Signs: 07:14 BP 147 / 88; Pulse 86; Resp 16; Temp 98.2(O); Pulse Ox 100% on R/A; Weight 104.33 kg; hb Height 5 ft. 2 in. ; Pain 10/10; 07:14 Body Mass Index 42.07 (104.33 kg, 157.48 cm) hb 07:14 Pain Scale: Adult hb MDM: 07:15 Patient medically screened. rt 07:32 Differential diagnosis: DVT, cellulitis, radicular pain. Data reviewed: vital signs, rt nurses notes. Test considered but Not performed: Ultrasound Clinically, believe that DVT is unlikely, discussed with patient, will forego ultrasound at this time.. Counseling: I had a detailed discussion with the patient and/or guardian regarding: the historical points, exam findings, and any diagnostic results supporting the discharge/admit diagnosis, the need for outpatient follow up, to return to the emergency department if symptoms worsen or persist or if there are any questions or concerns that arise at home. Administered Medications: 07:32 Drug: Ketorolac IM 30 mg Route: IM; Site: right deltoid; ss 07:44 Follow up: Response: No adverse reaction ss Disposition Summary: 03/29/23 07:24 Discharge Ordered Location: Home rt Problem: an ongoing problem rt Symptoms: have improved rt Condition: Stable rt Diagnosis - Pain in left arm rt Followup: rt - With: Private Physician - When: 2 - 3 days - Reason: Discharge Instructions: - Discharge Summary Sheet rt - Musculoskeletal Pain rt - Paresthesia rt Forms: - Work release form eb - Medication Reconciliation Form rt - Thank You Letter rt - Antibiotic Education rt - Prescription Opioid Use rt Prescriptions: - gabapentin 100 mg Oral capsule - take 1 capsule by ORAL route 3 times per day; 21 capsule; Refills: 0, Product rt Selection Permitted - Cyclobenzaprine 10 mg Oral Tablet - take 1 tablet by ORAL route every 8 hours As needed; 18 tablet; Refills: 0, rt Product Selection Permitted Signatures: Zaida St RN RN ss Kerri Vazquez RN RN Deshawn Allen MD MD rt
[2023-03-29] MEDS ORDERED: KETOROLAC 30 MG/ML INJ ONE (07:35)
[2023-03-29 07:56] VITALS: BP 147/88; TEMP 98.2; O2SAT 100
== END 2023-03-29 07:47 | disposition home or self-care (01) ==
LOC: ER 06:49
DX: M79.602 Pain in left arm (principal)
CPT/HCPCS: 96372; 99284